=== PATIENT | female | born 1955 | race Caucasian/White ===

== ENCOUNTER → 2020-11-20 12:10 | Outpatient (BNVA) | payer MEDICARE, SELFPAY | PROVIDERS: Visit Provider Internal Medicine | DX: R76.8 Other specified abnormal immunological findings in serum (principal); M25.50 Pain in unspecified joint; R70.0 Elevated erythrocyte sedimentation rate; Z11.1 Encounter for screening for respiratory tuberculosis; Z11.59 Encounter for screening for other viral diseases; E03.9 Hypothyroidism, unspecified; Z51.81 Encounter for therapeutic drug level monitoring; D86.9 Sarcoidosis, unspecified; M32.9 Systemic lupus erythematosus, unspecified | CPT/HCPCS: 36415; 73120; 81003; 83516; 86480; 86704; 86803; 87340; 99204 ==

== ENCOUNTER 2020-11-20 13:37 | Outpatient (CLI) | payer MEDICARE, SELFPAY ==
--- NOTE | 2020-11-20 13:50 | XR_ITS ---
WS: [id number] Right hand, 2 views, 11/20/2020 Clinical Data: R76.8 - Other specified abnormal immunological findings in serum Comparison: None. Findings: No fractures or dislocations are seen. The soft tissues are unremarkable. The joint space s are normal No periarticular demineralization or calcifications are seen. XR/XR hand RT 2V [id number] Impression: Negative right hand.
--- NOTE | 2020-11-20 13:50 | XR_ITS ---
WS: [id number] Left hand, 2 views, 11/20/2020 Clinical Data: R76.8 - Other specified abnormal immunological findings in serum Comparison: None. Findings: No fractures or dislocations are seen. The soft tissues are unremarkable. The joint spaces are normal No periarticular demineralization or calcifications are seen. XR/XR hand LT 2V [id number] Impression: Negative left hand.
[2020-11-20 15:52] LABS: Hepatitis B Core AB, Total Non-Reactive (Nonreactive); Hepatitis B Surface Antigen Non-Reactive (Nonreactive); Hepatitis C Virus Antibody Non-Reactive (Nonreactive)
[2020-11-21 14:14] LABS: Cyclic Citrullinated Peptide >250 UNITS
[2020-11-22 15:14] LABS: Quantiferon Mitogen >10.00 IU/mL; Quantiferon Nil 0.01 IU/mL; Quantiferon Plus TB1 0.01 IU/mL; Quantiferon Plus TB2 0.01 IU/mL; Quantiferon TB Gold NEGATIVE (NEGATIVE)
[2020-11-25 21:23] LABS: ANCA Interp Negative (Negative)
== END 2020-11-20 13:38 | disposition home or self-care (01) ==
LOC: RAD 13:49
PROVIDERS: PCP Family Medicine; Visit Provider Internal Medicine
DX: R76.8 Other specified abnormal immunological findings in serum (principal); D86.9 Sarcoidosis, unspecified; Z51.81 Encounter for therapeutic drug level monitoring; M32.9 Systemic lupus erythematosus, unspecified
CPT/HCPCS: 36415; 73120; 81003; 83516; 86480; 86704; 86803; 87340

== ENCOUNTER → 2021-01-01 10:34 | Outpatient (BNVA) | payer MEDICARE, SELFPAY | PROVIDERS: PCP Family Medicine; Visit Provider Internal Medicine | DX: M05.9 Rheumatoid arthritis with rheumatoid factor, unspecified (principal); E03.9 Hypothyroidism, unspecified; R70.0 Elevated erythrocyte sedimentation rate; Z79.899 Other long term (current) drug therapy | CPT/HCPCS: 99214 ==

== ENCOUNTER → 2021-06-09 08:20 | Outpatient (BNVA) | payer MEDICARE, SELFPAY | PROVIDERS: PCP Family Medicine; Visit Provider Internal Medicine | DX: M05.9 Rheumatoid arthritis with rheumatoid factor, unspecified (principal); Z79.899 Other long term (current) drug therapy; Z79.52 Long term (current) use of systemic steroids; F17.200 Nicotine dependence, unspecified, uncomplicated | CPT/HCPCS: 99213; 99214 ==

== ENCOUNTER → 2022-01-05 09:01 | Outpatient (BNVA) | payer MEDICARE, SELFPAY | PROVIDERS: PCP Family Medicine; Visit Provider Internal Medicine | DX: M05.9 Rheumatoid arthritis with rheumatoid factor, unspecified (principal); Z79.899 Other long term (current) drug therapy; Z87.891 Personal history of nicotine dependence | CPT/HCPCS: 99214 ==

== ENCOUNTER → 2022-05-18 08:44 | Outpatient (BNVA) | payer MEDICARE, SELFPAY | PROVIDERS: PCP Family Medicine; Visit Provider Internal Medicine | DX: M05.9 Rheumatoid arthritis with rheumatoid factor, unspecified (principal); Z79.899 Other long term (current) drug therapy | CPT/HCPCS: 99214 ==

== ENCOUNTER → 2022-11-04 11:32 | Outpatient (BNVA) | payer MEDICARE, OTHER, SELFPAY | PROVIDERS: PCP Family Medicine; Visit Provider Internal Medicine | DX: M05.9 Rheumatoid arthritis with rheumatoid factor, unspecified (principal); Z79.899 Other long term (current) drug therapy | CPT/HCPCS: 99214 ==

== ENCOUNTER 2023-01-06 13:00 | Observation (INO) | payer MEDICARE, OTHER, SELFPAY ==
[2023-01-06] VITALS (45 sets, daily range): BP systolic 120–152; BP diastolic 70–104; PULSE 63–102; RESP 7–25; TEMP 36.7–36.8; O2SAT 89–97; BMI 29.7
--- NOTE | 2023-01-06 13:19 | W.ED.GENADLT ---
HPI - General Adult General: Chief complaint: General Medical Stated complaint: TINGLING IN BOTH HANDS Time Seen by Provider: 01/06/23 13:05 Source: patient Mode of arrival: EMS History of Present Illness: 67-year-old female who presents to the emergency room with complaints of numbness and tingling in her hands and feet bilaterally. She had a little bit of shortness of breath with it as well. It resolved by the time she arrived here she was at a doctor's appointment with a friend. No history of coronary disease. No chest pain or discomfort at this time. Onset (ago): minute(s) Location: left, right, upper extremity and lower extremity Relieving factors: none Exacerbating factors: none Associated symptoms: Deny chest pain, confusion, cough, diaphoresis, decreased appetite, dyspnea, fevers/chills, headache(s), malaise, nausea, rash, palpitations, seizures, short of breath, syncope, vomiting or weakness Review of Systems Const: Denies: fever(s), chills, fatigue, malaise or diaphoresis ENMT: Denies: throat pain, ear or mastoid pain, nasal discharge or nasal congestion Card: Denies: chest pain, palpitations or syncope Resp: Denies: dyspnea GI: Denies: abdominal pain, nausea or vomiting : Denies: flank pain, difficulty voiding, dysuria, urinary frequency or urinary urgency Skin/Breast: Denies: rash Neuro: Denies: headache(s) or confusion [facility] ED PFSH: Medical History (Updated 01/06/23 @ 17:15 by Roberth Gusman DO) Hypothyroidism Rheumatoid factor positive Social History Smoking and tobacco status: former smoker Alcohol intake: never Physical Exam Const: COMMON NORMALS: no acute distress GENERAL APPEARANCE: cooperative and comfortable ORIENTATION/CONSCIOUSNESS: Yes awake, Yes oriented to person, Yes oriented to place and Yes oriented to time HENMT: COMMON NORMALS: normocephalic, atraumatic and hearing grossly normal bilaterally HEAD & SCALP: normocephalic and atraumatic Resp: COMMON NORMALS: normal respiratory effort, No retractions, No use of accessory muscles and clear to auscultation bilaterally AUSCULTATION: clear to auscultation bilaterally Cardio: COMMON NORMALS: regular rate, regular rhythm and No murmurs present (Cardio) RATE: regular rate RHYTHM: regular rhythm GI: COMMON NORMALS: Soft to palpation and No hepatosplenomegaly present AUSCULTATION: Yes normoactive bowel sounds PALPATION: Yes Soft to palpation, No Tenderness to palpation present (GI), No Guarding due to palpation present (GI) and Yes No hepatosplenomegaly present Extremity: COMMON NORMALS: normal to inspection, capillary refill normal, no clubbing, cyanosis or edema, no calf tenderness and no pedal edema Neuro: SENSORIUM/ORIENTATION: Yes oriented to person, Yes oriented to place and Yes oriented to time Skin: COMMON NORMALS: no rashes or lesions noted GENERAL SKIN EXAM: no rashes or lesions noted Course Vital Signs: Vital signs: Vital Signs Temperature 98.0 F 01/06/23 13:10 Pulse Rate 81 01/06/23 16:30 Respiratory Rate 24 H 01/06/23 16:30 Blood Pressure 132/82 01/06/23 16:00 Pulse Oximetry 94 01/06/23 16:30 Oxygen Delivery Nj thod 01/06/23 13:10 MDM - General Adult Medical Decision Making Initially patient arrived history was not terribly convincing for coronary artery disease and she had an allergy listed to aspirin. EMS had not given her aspirin and we held off and waited under troponins. Troponin delta is positive. Discussed patient's aspirin allergy with her. 50 years ago she remembers having hives after she took aspirin but never had any breathing problems. We will go ahead and give her 324 of aspirin and 25 of Benadryl along with it. Initial EKG at the doctor's office and with EMS showed some mild lateral ST depression this resolved at the time she arrived here she is still a little tingling in her fingers but has no chest pain. She is placed on topical nitro as well as given aspirin after discussion with her and see about note above. We also gave her single injection of Lovenox. Discussed the results with her and we will place her in observation to run out the rest of the troponins and for further evaluation regarding her risk for acute coronary syndrome. Medical Records I reviewed the patient's medical records. Lab Data I reviewed the patient's lab results. 01/06/23 13:34 01/06/23 13:34 Laboratory Results WBC 9.0 10^3/uL (4.0-10.0) 01/06/23 13:34 RBC 5.41 10^6/uL (4.1-5.3) H 01/06/23 13:34 Hgb 16.0 g/dL (11.5-15.3) H 01/06/23 13:34 Hct 49.9 % (37.0-47.0) H 01/06/23 13:34 MCV 92.2 fl (81-99) 01/06/23 13:34 MCH 29.6 pg (28.0-34.0) 01/06/23 13:34 MCHC 32.1 g/dL (30.0-36.0) 01/06/23 13:34 RDW 14.0 % (12.1-15.1) 01/06/23 13:34 Plt Count 226 10^3/cmm (130-400) 01/06/23 13:34 MPV 9.3 fL (7.4-10.4) 01/06/23 13:34 Neut % (Auto) 77.5 % 01/06/23 13:34 Lymph % (Auto) 11.8 % 01/06/23 13:34 [place] % (Auto) 9.2 % 01/06/23 13:34 Eos % (Auto) 0.9 % 01/06/23 13:34 Baso % (Auto) 0.4 % 01/06/23 13:34 Neut # (Auto) 6.94 10^3/uL (1.8-7.7) 01/06/23 13:34 Lymph # (Auto) 1.1 10^3/uL (0.8-4.8) 01/06/23 13:34 [place] # (Auto) 0.8 10^3/uL (0.2-0.9) 01/06/23 13:34 Eos # (Auto) 0.1 10^3/uL (0.0-0.8) 01/06/23 13:34 Baso # (Auto) 0.0 10^3/uL (0.0-0.1) 01/06/23 13:34 Nucleated RBC % (auto) 0 % 01/06/23 13:34 Nucleated RBCs # 0.0 /100WBC 01/06/23 13:34 Specimen Type Arterial 01/06/23 13:19 Sample Site Brachial, left 01/06/23 13:19 ABG pH 7.41 (7.35-7.45) 01/06/23 13:19 ABG pCO2 39.6 mmHg (35-45) 01/06/23 13:19 ABG pO2 69.2 mmHg (80.0-100.0) L 01/06/23 13:19 ABG HCO3 25.0 mmol/L (22-26) 01/06/23 13:19 ABG O2 Saturation 95.7 01/06/23 13:19 ABG Base Excess 0.3 mmol/L (-2.0-2.0) 01/06/23 13:19 Andrea Test Pos 01/06/23 13:19 A-a O2 Gradient 4.2 mmHg (5-10) L 01/06/23 13:19 Hematocrit 48.8 % (37-47) H 01/06/23 13:19 Hgb O2 Saturation 90.2 % (95-100) L 01/06/23 13:19 Carboxyhemoglobin 5.2 %THgb (0.4-20.1) 01/06/23 13:19 Methemoglobin 0.5 % (0.4-1.5) 01/06/23 13:19 Total Hemoglobin 15.9 g/dL (12-16) 01/06/23 13:19 Sodium 146.0 mmol/L (131-143) H 01/06/23 13:19 Potassium 3.5 mmol/L (3.5-5.0) 01/06/23 13:19 Glucose 119.0 mg/dL (70-115) H 01/06/23 13:19 Ionized Calcium 1.2 mmol/L (1.1-1.4) 01/06/23 13:19 O2 Delivery Device Room air 01/06/23 13:19 FiO2 21.0 % 01/06/23 13:19 Spinning Operator ID Cak 01/06/23 13:19 Sodium 142 mmol/L (136-145) 01/06/23 13:34 Potassium 3.8 mmol/L (3.5-5.1) 01/06/23 13:34 Chloride 101 mmol/L (98-107) 01/06/23 13:34 Carbon Dioxide 27 mmol/L (22-29) 01/06/23 13:34 Anion Gap 17.8 (5-19) 01/06/23 13:34 BUN 10 mg/dL (8-23) 01/06/23 13:34 Creatinine 0.8 mg/dL (0.5-0.9) 01/06/23 13:34 GFR Calculation 71.3 mL/min (90-130) L 01/06/23 13:34 Glucose 115 mg/dL (65-115) 01/06/23 13:34 Calculated Osmolality 294 mOsm/kg (285-295) 01/06/23 13:34 Calcium 9.4 mg/dL (8.5-10.5) 01/06/23 13:34 Total Bilirubin 0.4 mg/dL (0.15-1.2) 01/06/23 13:34 AST 20 U/L (0-32) 01/06/23 13:34 ALT 23 U/L (0-33) 01/06/23 13:34 Alkaline Phosphatase 76 U/L (35-105) 01/06/23 13:34 Troponin T Baseline 66 ng/L (0-10) H 01/06/23 13:34 Troponin T 120 Minute 89.09 ng/L (0-10) H 01/06/23 15:30 Delta Troponin T 23.09 ABS# (0-10) H* 01/06/23 15:30 Total Protein 6.9 g/dL (6.6-8.7) 01/06/23 13:34 Albumin 4.1 g/dL (3.5-5.2) 01/06/23 13:34 Globulin 2.8 g/dL (1.3-4.6) 01/06/23 13:34 Discharge Plan Discharge Patient Disposition: Admitted As Inpatient Clinical Impression: Non-ST elevation PA (NSTEMI) Condition: Stable Prescriptions: No Action Vitamin B-12 250 mcg Tablet 250 mcg PO DAILY levothyroxine 100 mcg tablet 100 mcg PO QAM Vitamin D3 125 mcg (5,000 unit) Tablet 125 mcg PO DAILY prednisone 5 mg tablet 5 mg PO QAM leflunomide 10 mg tablet 10 mg PO QAM folic acid 1 mg tablet 1 mg PO QAM diclofenac sodium 1 % gel 2 g topical QID PRN (Reason: Pain) Rx Instructions: apply to single elbow, wrist or hand; for hand includes palm/fingers/back of hand Xeljanz XR 11 mg tablet extended release 24 hr 11 mg PO QAM Referrals: Steven Eldridge MD [Primary Care Provider] - Coding Level of Care Code ED Nursery School Attendant for Nika Hamilton
[2023-01-06 13:31] LABS: ABG PCO2 39.6 mmHg (35-45); ABG PH Result 7.41 (7.35-7.45); Alveolar-Arterial Oxygen Gradi 4.2 mmHg (5-10); Arterial Blood Gas Hematocrit 48.8 % (37-47); Base Excess ABG 0.3 mmol/L (-2.0-2.0); Blood Gas Allen Test Pos; Blood Gas Operator Identificat CAK; Blood Gas Sample Site Brachial, left; Blood Gas Sample Type Arterial; Carboxyhemoglobin 5.2 %THgb (0.4-20.1); HGB O2 Sat 90.2 % (95-100); Ionized Calcium Level - ABG 1.2 mmol/L (1.1-1.4); Methemoglobin 0.5 % (0.4-1.5); Oxygen Device ROOM AIR; Oxygen Saturation ABG 95.7; PO2 ABG 69.2 mmHg (80.0-100.0); Potassium Level - ABG 3.5 mmol/L (3.5-5.0); Total Hemoglobin 15.9 g/dL (12-16)
--- NOTE | 2023-01-06 13:39 | ECG_ITS ---
[facility] Test Date: 2023-01-06 Pat Name: Kari Lugo Department: Room: Gender: Female Caregiver Services Home: : 1955 Requested By: Roberth Bains Order Number: [id number] Dorita MD: Sander Allen M.D. Measurements Intervals [place] Rate: 78 P: 55 NE: 146 QRS: 53 QRSD: 83 T: 55 QT: 370 QTc: 423 Interpretive Statements SINUS RHYTHM LOW QRS VOLTAGE IN PRECORDIAL LEADS [QRS DEFLECTION < 1.0 mV IN CHEST LEADS] No previous ECG available for comparison Electronically Signed On 01-06-2023 15:08:26 GAS DISPENSER by Sander Allen M.D. [id number]
[2023-01-06 13:55] LABS: Basophils % 0.4 %; Eosinophils # 0.1 10^3/uL (0.0-0.8); Eosinophils % 0.9 %; Hematocrit 49.9 % (37.0-47.0); Lymphocytes # 1.1 10^3/uL (0.8-4.8); Lymphocytes % 11.8 %; Mean Corpuscular HGB Conc 32.1 g/dL (30.0-36.0); Mean Corpuscular Hemoglobin 29.6 pg (28.0-34.0); Mean Corpuscular Volume 92.2 fl (81-99); Mean Platelet Volume 9.3 fL (7.4-10.4); Monocytes # 0.8 10^3/uL (0.2-0.9); Monocytes % 9.2 %; Neutrophils # 6.94 10^3/uL (1.8-7.7); Neutrophils % 77.5 %; Nucleated Red Blood Cells % 0 %; Platelet Count 226 10^3/cmm (130-400); Red Blood Count 5.41 10^6/uL (4.1-5.3)
[2023-01-06 14:08] LABS: Alanine Aminotransferase 23 U/L (0-33); Albumin Level 4.1 g/dL (3.5-5.2); Alkaline Phosphatase 76 U/L (35-105); Anion Gap 17.8 (5-19); Aspartate Amino Transferase 20 U/L (0-32); Blood Urea Nitrogen 10 mg/dL (8-23); Calcium 9.4 mg/dL (8.5-10.5); Carbon Dioxide 27 mmol/L (22-29); Chloride 101 mmol/L (98-107); Creatinine Clr Calc Pharmacy 80.9506; Globulin 2.8 g/dL (1.3-4.6); Glomerular Filtration Rate 71.3 mL/min (90-130); Glucose 115 mg/dL (65-115); Osmolality Calculated 294 mOsm/kg (285-295); Potassium 3.8 mmol/L (3.5-5.1); Sodium 142 mmol/L (136-145); Total Bilirubin 0.4 mg/dL (0.15-1.2); Total Protein 6.9 g/dL (6.6-8.7)
[2023-01-06 14:10] LABS: Troponin(5th) Baseline 66 ng/L (0-10)
--- NOTE | 2023-01-06 15:12 | ECG_ITS ---
[facility] Test Date: 2023-01-06 Pat Name: Kari Lugo Department: Room: Gender: Female Automobile Body Repair Supervisor: : 1955 Requested By: Roberth Bains Order Number: [id number] Dorita MD: Zoe Cortes M.D. Measurements Intervals [place] Rate: 70 P: 61 NC: 147 QRS: 62 QRSD: 78 T: 60 QT: 380 QTc: 413 Interpretive Statements SINUS RHYTHM LOW QRS VOLTAGE IN PRECORDIAL LEADS [QRS DEFLECTION < 1.0 mV IN CHEST LEADS] Compared to ECG 01/06/2023 13:39:21 No significant changes Electronically Signed On 01-07-2023 23:44:28 FIELD OPERATIONS FARM MANAGER by Zoe Cortes M.D. [email or web address] [email or web address].[employer]/store/[id number]
[2023-01-06 16:08] LABS: Troponin 5 2HR 89.09 ng/L (0-10)
[2023-01-06 16:15] LABS: Troponin 5 2HR Delta 23.09 ABS# (0-10)
[2023-01-06] MEDS: enoxaparin 100 mg/mL Syringe 90 MG SUBCUT (16:36)
[2023-01-06] MEDS: nitroglycerin 1 gm/inch oint Pkt 1 INCH TOPICAL (16:36)
--- NOTE | 2023-01-06 16:54 | PM.HP ---
Providers/Chief Complaint Primary Care Provider: Steven Eldridge MD Chief Complaint: TINGLING IN BOTH HANDS History of Present Illness Kari Lugo is a 67 year old female who is an active smoker, history of rheumatoid, has been on steroids for at least a year presented with chief complaint numbness in her arms. She was at her PCP clinic when she complained of numbness EKG was concerning for ST depression to the physician that is why she was prompted to the ER. On arrival her EKG was unremarkable, troponin are showing an uptrend, she is chest pain-free he has not noticed any nausea, vomiting, diarrhea, chest pain or shortness of breath. She is describing numbness in her arms bilaterally. She has been given therapeutic dose of Lovenox in the ER along aspirin She does not carry history of UT, CHF or coronary disease She does not have any history of high blood pressure and she does not take anything for hypertension she has history of hypothyroidism and rheumatoid Review of Systems Const: Denies: fever(s) Eyes: Denies: change in vision ENMT: Denies: throat pain Card: Denies: chest pain Resp: Denies: dyspnea GI: Denies: abdominal pain : Denies: flank pain Musc: Reports: extremity pain Skin/Breast: Denies: rash Neuro: Reports: sensory changes Psych: Denies: anxiety Endo: Denies: polyuria Jose/Lymph: Denies: easy bruising All/Imm: Denies: urticaria Medications/Allergies Home Medications Medication Instructions Recorded Confirmed Last Taken Type cholecalciferol (vitamin D3) 125 125 mcg PO DAILY 01/06/23 01/06/23 1 Week Ago History mcg (5,000 unit) tablet (Vitamin ~12/30/22 D3) cyanocobalamin (vitamin B-12) 250 250 mcg PO DAILY 01/06/23 01/06/23 01/06/23 History mcg tablet (Vitamin B-12) diclofenac sodium 1 % topical gel 2 g topical QID PRN Pain 01/06/23 01/06/23 Unknown History folic acid 1 mg tablet 1 mg PO QAM 01/06/23 01/06/23 01/05/23 History leflunomide 10 mg tablet 10 mg PO QAM 01/06/23 01/06/23 01/05/23 History levothyroxine 100 mcg tablet 100 mcg PO QAM 01/06/23 01/06/23 01/05/23 History prednisone 5 mg tablet 5 mg PO QAM 01/06/23 01/06/23 01/05/23 History tofacitinib 11 mg tablet,extended 11 mg PO QAM 01/06/23 01/06/23 Unknown History release 24 hr (Xeljanz XR) Allergies Allergy/AdvReac Type Severity Reaction Status Date / Time aspirin Allergy rash Verified 01/06/23 14:01 Penicillins Allergy rash Verified 01/06/23 14:01 PFSH Acute PFSH: Medical History (Updated 01/06/23 @ 17:36 by Hugo Gooden MD) Hypothyroidism Rheumatoid factor positive Surgical History (Updated 01/06/23 @ 17:36 by Hugo Gooden MD) Hx of cholecystectomy Social History Smoking and tobacco status: former smoker Alcohol intake: never Vitals/I&O/Wt Last Vital Signs Temp 98.0 F 01/06/23 13:10 Pulse 81 01/06/23 16:30 Resp 24 H 01/06/23 16:30 BP 132/82 01/06/23 16:00 Pulse Ox 94 01/06/23 16:30 O2 Del Method 01/06/23 13:10 Weight last 48 hrs Weight 91.172 kg Physical Exam Narrative: Chest pain-free Hemodynamically stable Hypertension in the ER Awake and alert S1, S2 Abdomen soft Euvolemic Cushingoid appearance Pleasant and cooperative Appears stated age Comfortable Data 01/06/23 13:34 01/06/23 13:34 A&P Assessment and plan (1) Hypothyroidism: (2) Numbness and tingling of upper extremity: (3) Rheumatoid factor positive: (4) ESR raised: (5) Arthralgia: Plan Moderate risk factors for coronary disease Presented with numbness of upper extremities bilaterally History of rheumatoid arthritis Troponin trending up EKG without ischemic or infarctive changes I will request Lexiscan stress test in the morning N.p.o. after midnight Check echo Add lisinopril for hypertension Uptitrate antihypertensive regimen Full code Cardiac diet for tonight and 2 midnight She is seeing a gasoline power shovel operator for rheumatoid arthritis she has been taking steroids for last 1 year she does have cushingoid appearance We will add gabapentin for neuropathic pain Attestations Medical Necessity Statement*: Anticipate discharge within 48 hours Diagnoses Hypothyroidism E03.9 Numbness and tingling of upper extremity R20.0; R20.2 Rheumatoid factor positive R76.8 ESR raised R70.0 Arthralgia M25.50
[2023-01-06] MEDS: aspirin 81 mg Chew Tablet 324 MG PO (16:57)
[2023-01-06] MEDS: diphenhydrAMINE 50 mg/mL SDV 1mL 25 MG IVP (17:02)
--- NOTE | 2023-01-06 17:30 | USCV_ITS ---
Kari Lugo Age: 67 Gender: F : 1955 Exam Date: 01/06/2023 18:32 Ordering Phys: Hugo Gooden MD Technologist: DANNY [place]am [place] [facility] [place] [facility] [place] Indication: bilateral arm / hand numbness episode today. No history of cardiac intervention per patient. BP: 132 / 82 HR: 75 Rhythm: Sinus Technical Quality: Adequate MEASUREMENTS (Male / Female) Normal Values 2D ECHO LV Diastolic Diameter PLAX 4.2 cm 4.2 - 5.9 / 3.9 - 5.3 cm LV Systolic Diameter PLAX 2.9 cm IVS Diastolic Thickness 1.2 cm 0.6 - 1.0 / 0.6 - 0.9 cm IVS Systolic Thickness 1.5 cm LVPW Diastolic Thickness 1.6 cm 0.6 - 1.0 / 0.6 - 0.9 cm LVPW Systolic Thickness 1.8 cm LVOT Diameter 2.0 cm LV Ejection Fraction 2D Teich 59.0 % LV Ejection Fraction MOD 2C 58.4 % LV Ejection Fraction 2C AL 59.3 % LA Diameter 3.6 cm LA Width 2.7 cm LA Height 4.2 cm RA Width 3.2 cm RA Height 2.8 cm Aorta at Sinotubular Diameter 3.0 cm IVC Diameter 1.6 cm M-MODE Aortic Annulus Diameter 3.3 cm LA Ao Ratio MM 1.1 MV E Point Septal Separation 0.6 cm DOPPLER AV Peak Velocity 127.0 cm/s LVOT Peak Velocity 107.0 cm/s AV Area Cont Eq vti 3.0 cm squared AV Area Cont Eq pk 2.6 cm squared MV Peak Velocity 146.0 cm/s MV Area PHT 3.4 cm squared Mitral E to A Ratio 0.5 MV E' Velocity 32.5 cm/s Mitral E to MV E' Ratio 7.3 Mitral E to LV E' Lateral Ratio 9.6 Mitral E to LV E' Septal Ratio 5.8 TV Peak E Velocity 47.0 cm/s PV Peak Velocity 100.0 cm/s RV Acceleration Time 0.1 s RV Ejection Time 0.3 s RV AcT/ET 0.4 FINDINGS Left Ventricle Normal left ventricular size and systolic function, EF 59 %. No regional wall motion abnormalities. Grade I/IV diastolic dysfunction (abnormal relaxation filling pattern), normal to mildly elevated filling pressures. Mild left ventricular hypertrophy. Right Ventricle Mildly increased right ventricular size. Normal right ventricular systolic function. Right Atrium Mildly increased right atrial size. Left Atrium The left atrium is normal in size. Mitral Valve No gross abnormalities noted Aortic Valve Thickened aortic valve. Tricuspid Valve Trace tricuspid valve regurgitation. Pulmonic Valve No gross abnormalities noted Pericardium Normal pericardium without effusion. Aorta Normal ascending aorta dimension. IVC Normal inferior vena cava. CONCLUSIONS Normal left ventricular size and systolic function, EF 59 %. No regional wall motion abnormalities. Grade I/IV diastolic dysfunction (abnormal relaxation filling pattern), normal to mildly elevated filling pressures. Mild left ventricular hypertrophy. Mildly increased right ventricular size. Normal right ventricular systolic function. Mildly increased right atrial size. Trace tricuspid valve regurgitation. PA pressure was not calculated because of the poor Doppler signals There is no pericardial effusion. There are no intracardiac masses. No similar previous studies are available for comparison Dr Zoe Cortes MD [facility] (Electronically Signed) Final Date: 06 January 2023 23:00 S
--- NOTE | 2023-01-06 17:32 | ECG_ITS ---
[facility] Test Date: 2023-01-07 Pat Name: Kari Lugo Department: Room: 106 Gender: Female Teletype Adjuster: Shawna Carrero : 1955 Requested By: Hugo Gooden Order Number: [id number] Reading MD: Zoe Cortes M.D. Interpretive Statements NAME OF STUDY: LEXISCAN SESTAMIBI STRESS TEST INDICATION: Pain PROCEDURE: At the baseline, the EKG revealed normal sinus rhythm with a normal ST Ts. The baseline heart was 75 bpm with a blood pressue of 131/83 mm of Hg Lexiscan was infused over a period of 20 seconds. A total of 0.4 milligrams of Lexiscan was infused. The stress phase was continued for a total of 5 minutes. Heart rate at the end of the stress phase was 85 bpm with a blood pressure 131/64 mm of Hg. The EKG at the peak infusion revealed no significant changes Sestamibi was injected 20 seconds after the Lexiscan infusion. Heart rate at the end of the recovery phase was 85 bpm with a blood pressure of 136/64 mm of Hg. CONCLUSION: 1. No significant EKG changes with the LexiScan infusion 2. No LexiScan induced chest pain or cardiac arrhythmia 3. Normal blood pressure and heart rate response 4. Sestamibi/sestamibi perfusion scan pending; see separate report. Electronically Signed On 01-10-2023 23:58:08 CDT by Zoe Cortes M.D. [email or web address].[email or web address]/store/[id number]
[2023-01-06 18:16] LABS: D Dimer 3.83 ug/mIFEU (0-0.59)
[2023-01-06 18:30] LABS: Thyroid Stimulating Hormone 1.87 uIU/mL (0.27-4.20)
[2023-01-06 19:07] LABS: Vitamin B12 > 2000 pg/mL (232-1245)
--- NOTE | 2023-01-06 19:22 | ECG_ITS ---
[facility] Test Date: 2023-01-06 Pat Name: Kari Lugo Department: Room: EDIP Gender: Female Operator Bearer Systems: : 1955 Requested By: Roberth Bains Order Number: [id number] Dorita MD: Zoe Cortes M.D. Measurements Intervals [place] Rate: 72 P: 55 [place]: 144 QRS: 50 QRSD: 73 T: 54 QT: 371 QTc: 406 Interpretive Statements SINUS RHYTHM Compared to ECG 01/06/2023 16:20:06 No significant changes Electronically Signed On 01-07-2023 23:46:06 TRUCK DRIVING INSTRUCTOR by Zoe Cortes M.D. [email or web address] Organizationlos angeles metropolitan med centerInf[facility]/store/[id number]
[2023-01-06] MEDS: gabapentin 100 mg Capsule PO (21:10)
[2023-01-06 21:31] LABS: Troponin 5 6HR 79.88 ng/L (0-10)
[2023-01-06 21:33] LABS: Troponin 5 6HR Delta 13.88 ng/L (0-12)
[2023-01-07] VITALS (19 sets, daily range): BP systolic 106–136; BP diastolic 63–88; PULSE 63–85; RESP 16–17; TEMP 36.6; O2SAT 89–94
[2023-01-07] MEDS: folic acid 1 mg Tablet PO (05:11)
[2023-01-07] MEDS: levothyroxine 100 mcg Tablet PO (05:11)
--- NOTE | 2023-01-07 05:22 | PC.NURSE ---
Pt states n/v when taking prednisone wo food. Pt npo pending lexiscan. Documenting not given. Will update oncoming shift that she will need it when no longer npo.
[2023-01-07 05:26] LABS: Basophils % 0.9 %; Eosinophils # 0.1 10^3/uL (0.0-0.8); Eosinophils % 2.5 %; Hematocrit 45.4 % (37.0-47.0); Hemoglobin 14.4 g/dL (11.5-15.3); Lymphocytes # 1.1 10^3/uL (0.8-4.8); Lymphocytes % 24.5 %; Mean Corpuscular HGB Conc 31.7 g/dL (30.0-36.0); Mean Corpuscular Hemoglobin 29.6 pg (28.0-34.0); Mean Corpuscular Volume 93.2 fl (81-99); Mean Platelet Volume 8.8 fL (7.4-10.4); Monocytes # 0.6 10^3/uL (0.2-0.9); Monocytes % 12.8 %; Neutrophils # 2.58 10^3/uL (1.8-7.7); Neutrophils % 59.1 %; Nucleated Red Blood Cells % 0 %; Platelet Count 206 10^3/cmm (130-400); Red Blood Count 4.87 10^6/uL (4.1-5.3); Red Cell Distribution Width 14.1 % (12.1-15.1); White Blood Count 4.4 10^3/uL (4.0-10.0)
[2023-01-07 05:43] LABS: Anion Gap 12.2 (5-19); Blood Urea Nitrogen 11 mg/dL (8-23); Calcium 9.3 mg/dL (8.5-10.5); Carbon Dioxide 30 mmol/L (22-29); Chloride 106 mmol/L (98-107); Glomerular Filtration Rate 62.3 mL/min (90-130); Glucose 93 mg/dL (65-115); Osmolality Calculated 297 mOsm/kg (285-295); Potassium 4.2 mmol/L (3.5-5.1); Sodium 144 mmol/L (136-145)
--- NOTE | 2023-01-07 08:00 | NMCV_ITS ---
NM maverick perf SPECT r/s* [id number] Kari Lugo Age: 67 Gender: F : 1955 Exam Date: 01/07/2023 08:00 Ordering Phys: Hugo Gooden MD Technologist: ZARA Griffith Exam Location: [facility] Indications: CHEST PAIN STRESS TEST Please [facility] for [facility] IMAGE PROTOCOL Rest/Stress 1 Lexiscan Day Radiopharmaceutical Dose (mCi) Administration Site Administered by Rest: Tc-99m 10.6 IV ZARA Griffith Sestamibi Stress:Tc-99m 32.2 IV ZARA Méndez Sestamibi Rest: 07-Jan-2023 60 Discovery 630 Stress: 07-Jan-2023 30 Discovery 630 0.4mg Lexiscan. Supine position only as patient was unable to lay prone. SPECT RESULTS Technical Quality: Excellent Raw Data Analysis: Normal Image Corrections: No attenuation or motion correction applied Summed Stress Score: 2 Summed Rest Score: 1 Summed Difference Score: 1 PERFUSION FINDINGS A small area of slightly decreased tracer uptake was noted in the mid inferolateral and apical lateral regions. Subtle area of reversibility was noted in this region FUNCTIONAL RESULTS (calculated via Gated SPECT) Stress Image LV EF (%): 82 Stress EDV (mL):62 TID: 0.72 Stress ESV (mL):11 FUNCTIONAL FINDINGS: Segmental wall motion analysis revealing no gross wall motion abnormalities IMPRESSIONS 1. Myocardial perfusion imaging revealing small area of slightly decreased persistent tracer uptake in the mid inferolateral and apical lateral regions with a subtle area of reversibility, suggesting myocardial scarring in the distribution of the distal circumflex artery with a very small area of leo- infarction ischemia. 2. Normal LV ejection fraction of 82% 3. LV wall motion analysis revealing no gross wall motion normalities. 4. Normal LV volume No similar previous studies are available for comparison Dr Zoe Cortes MD [facility] (Electronically Signed) Final Date: 07 January 2023 12:45 S
--- NOTE | 2023-01-07 09:00 | CT_ITS ---
WS: [id number] CTA OF THE CHEST WITH PULMONARY EMBOLISM PROTOCOL TECHNIQUE: High-resolution contrast enhanced CTA of the chest with coronal and sagittal reformatted i mages with pulmonary embolism protocol. MIP images are also reviewed. CLINICAL INFORMATION: atypical chest pain, high dimer COMPARISON: None. DLP: 436.[address] scans at [facility] use at least one of these dose optimization techniques: automated e xposure control; mA and/or kV adjustment per patient size (includes targeted exams where dose is matc hed to clinical indication); or iterative reconstruction. FINDINGS: The lungs are well aerated. No acute pulmonary infiltrates. No focal pneumonia or pleural fluid. Subs egmental atelectasis LEFT lower lobe. Slight atelectasis RIGHT lower lobe. No mediastinal or hilar ly mphadenopathy. Normal caliber thoracic aorta. Aortic calcification. Adrenal glands are normal. Cholec ystectomy clips. Small esophageal hiatal hernia. No axillary lymphadenopathy. Proximal main pulmonary arteries are normal. Normal segmental and subsegmental pulmonary arteries. No evidence of pulmonary embolus. Hypertrophic changes thoracic spine. CT/CT angio chest PE protcl [id number] IMPRESSION: 1. No evidence of pulmonary embolus. 2. Lungs are well aerated. Slight bibasilar atelectasis. 3. Prior cholecystectomy. 4. Small esophageal hiatal hernia.
[2023-01-07] MEDS: lisinopril 10 mg Tablet PO (10:13)
[2023-01-07] MEDS: gabapentin 100 mg Capsule PO (10:13)
[2023-01-07] MEDS: regadenoson 0.4 Mg/5 ml Syringe IVP (10:55)
--- NOTE | 2023-01-07 11:45 | P.DS_ITS ---
Discharge Providers Date of Admission: 01/06/23 16:48 Date of Discharge: January 07, 2023 Attending Provider at Admission: Hugo Gooden MD Attending Provider at Discharge: Hugo Gooden MD Primary Care Provider: Steven Eldridge MD Diagnoses at Discharge Discharge Diagnosis (1) Hypothyroidism: Status: Acute (2) Numbness and tingling of upper extremity: Status: Acute (3) Rheumatoid factor positive: Status: Acute (4) ESR raised: Status: Acute (5) Arthralgia: Status: Acute Reason for Visit Reason for Visit: TINGLING IN BOTH HANDS Hospital Course Hospital Course 67-year female who was sent from her PCP for concerning symptoms of numbness in both arms and EKG changes. However on arrival she was chest pain-free, was complaining of numbness in her arms bilaterally, she does have rheumatoid arthritis with neck pains which are chronic in nature, she is on steroids, does not have any history of TX, CHF or cardiac disease. EKG was unremarkable she remained chest pain-free, troponin 6 hours trending down, decision was made to do a cardiac stress test. Patient remained hemodynamically stable, chest pain- free. High D-dimer noted CTA chest was requested before discharge. Physical Exam Narrative: Awake and alert Chest pain-free Hemodynamically stable Cushingoid appearance Abdomen soft GCS 15 On room air Discharge Data Studies Completed and Pending Completed Studies During Hospitalization Category Date Time Status Sestamibi Stress Test Request Routine Exams 01/06/23 17:32 Draft CV. echo complete* [id number] Stat Ultrasound 01/06/23 17:30 Completed Pending at discharge Category Date Time Status CTA PE [CT angio chest PE protcl [id number]] Routine Cat Scan 01/07/23 09:00 Ordered NM maverick perf SPECT r/s* [id number] Routine Nuc Med 01/07/23 08:00 Taken Laboratory Results WBC 4.4 10^3/uL (4.0-10.0) 01/07/23 05:20 RBC 4.87 10^6/uL (4.1-5.3) 01/07/23 05:20 Hgb 14.4 g/dL (11.5-15.3) 01/07/23 05:20 Hct 45.4 % (37.0-47.0) 01/07/23 05:20 MCV 93.2 fl (81-99) 01/07/23 05:20 MCH 29.6 pg (28.0-34.0) 01/07/23 05:20 MCHC 31.7 g/dL (30.0-36.0) 01/07/23 05:20 RDW 14.1 % (12.1-15.1) 01/07/23 05:20 Plt Count 206 10^3/cmm (130-400) 01/07/23 05:20 MPV 8.8 fL (7.4-10.4) 01/07/23 05:20 Neut % (Auto) 59.1 % 01/07/23 05:20 Lymph % (Auto) 24.5 % 01/07/23 05:20 [place] % (Auto) 12.8 % 01/07/23 05:20 Eos % (Auto) 2.5 % 01/07/23 05:20 Baso % (Auto) 0.9 % 01/07/23 05:20 Neut # (Auto) 2.58 10^3/uL (1.8-7.7) 01/07/23 05:20 Lymph # (Auto) 1.1 10^3/uL (0.8-4.8) 01/07/23 05:20 [place] # (Auto) 0.6 10^3/uL (0.2-0.9) 01/07/23 05:20 Eos # (Auto) 0.1 10^3/uL (0.0-0.8) 01/07/23 05:20 Baso # (Auto) 0.0 10^3/uL (0.0-0.1) 01/07/23 05:20 Nucleated RBC % (auto) 0 % 01/07/23 05:20 Nucleated RBCs # 0.0 /100WBC 01/07/23 05:20 D-Dimer 3.83 ug/mIFEU (0-0.59) H 01/06/23 13:34 Specimen Type Arterial 01/06/23 13:19 Sample Site Brachial, left 01/06/23 13:19 ABG pH 7.41 (7.35-7.45) 01/06/23 13:19 ABG pCO2 39.6 mmHg (35-45) 01/06/23 13:19 ABG pO2 69.2 mmHg (80.0-100.0) L 01/06/23 13:19 ABG HCO3 25.0 mmol/L (22-26) 01/06/23 13:19 ABG O2 Saturation 95.7 01/06/23 13:19 ABG Base Excess 0.3 mmol/L (-2.0-2.0) 01/06/23 13:19 Andrea Test Pos 01/06/23 13:19 A-a O2 Gradient 4.2 mmHg (5-10) L 01/06/23 13:19 Hematocrit 48.8 % (37-47) H 01/06/23 13:19 Hgb O2 Saturation 90.2 % (95-100) L 01/06/23 13:19 Carboxyhemoglobin 5.2 %THgb (0.4-20.1) 01/06/23 13:19 Methemoglobin 0.5 % (0.4-1.5) 01/06/23 13:19 Total Hemoglobin 15.9 g/dL (12-16) 01/06/23 13:19 Sodium 146.0 mmol/L (131-143) H 01/06/23 13:19 Potassium 3.5 mmol/L (3.5-5.0) 01/06/23 13:19 Glucose 119.0 mg/dL (70-115) H 01/06/23 13:19 Ionized Calcium 1.2 mmol/L (1.1-1.4) 01/06/23 13:19 O2 Delivery Device Room air 01/06/23 13:19 FiO2 21.0 % 01/06/23 13:19 Windows Server Architect ID Cak 01/06/23 13:19 Sodium 144 mmol/L (136-145) 01/07/23 05:20 Potassium 4.2 mmol/L (3.5-5.1) 01/07/23 05:20 Chloride 106 mmol/L (98-107) 01/07/23 05:20 Carbon Dioxide 30 mmol/L (22-29) H 01/07/23 05:20 Anion Gap 12.2 (5-19) 01/07/23 05:20 BUN 11 mg/dL (8-23) 01/07/23 05:20 Creatinine 0.9 mg/dL (0.5-0.9) 01/07/23 05:20 GFR Calculation 62.3 mL/min (90-130) L 01/07/23 05:20 Glucose 93 mg/dL (65-115) 01/07/23 05:20 Calculated Osmolality 297 mOsm/kg (285-295) H 01/07/23 05:20 Calcium 9.3 mg/dL (8.5-10.5) 01/07/23 05:20 Magnesium 2.0 mg/dL (1.7-2.3) 01/07/23 05:20 Total Bilirubin 0.4 mg/dL (0.15-1.2) 01/06/23 13:34 AST 20 U/L (0-32) 01/06/23 13:34 ALT 23 U/L (0-33) 01/06/23 13:34 Alkaline Phosphatase 76 U/L (35-105) 01/06/23 13:34 Troponin T Baseline 66 ng/L (0-10) H 01/06/23 13:34 Troponin T 120 Minute 89.09 ng/L (0-10) H 01/06/23 15:30 Delta Troponin T 23.09 ABS# (0-10) H* 01/06/23 15:30 Troponin T Hi Sens 6Hr 79.88 ng/L (0-10) H 01/06/23 20:25 Troponin T Hi Sens 6Hr Delta 13.88 ng/L (0-12) H* 01/06/23 20:25 Total Protein 6.9 g/dL (6.6-8.7) 01/06/23 13:34 Albumin 4.1 g/dL (3.5-5.2) 01/06/23 13:34 Globulin 2.8 g/dL (1.3-4.6) 01/06/23 13:34 Vitamin B12 > 2000 pg/mL (232-1245) H 01/06/23 13:12 TSH 1.87 uIU/mL (0.27-4.20) 01/06/23 13:12 Vitals Last Vital Signs Temp 97.9 F 01/07/23 04:51 Pulse 85 01/07/23 11:02 Resp 16 01/07/23 08:59 BP 136/64 01/07/23 11:02 Pulse Ox 94 01/07/23 08:59 O2 Del Method 01/07/23 08:59 Discharge Plan Discharge Patient Disposition: Home Condition: Stable Prescriptions: New lisinopril 5 mg tablet 5 mg PO DAILY Qty: 30 1RF Continued Vitamin B-12 250 mcg Tablet 250 mcg PO DAILY levothyroxine 100 mcg tablet 100 mcg PO QAM Vitamin D3 125 mcg (5,000 unit) Tablet 125 mcg PO DAILY prednisone 5 mg tablet 5 mg PO QAM leflunomide 10 mg tablet 10 mg PO QAM folic acid 1 mg tablet 1 mg PO QAM diclofenac sodium 1 % gel 2 g topical QID PRN (Reason: Pain) Rx Instructions: apply to single elbow, wrist or hand; for hand includes palm/fingers/back of hand Xeljanz XR 11 mg tablet extended release 24 hr 11 mg PO QAM Discharge Orders: Discharge Order (Routine); Ordered 01/07/23 Ordered By: Hugo Gooden Referrals: Steven Eldridge MD [Primary Care Provider] - Patient Instructions: Opioid Safety Discharge Attestations Time Spent in Discharge Care*: less than 30 min Quality Metrics Clinical Quality Measures [ No reported AMI, CVA or VTE this stay] Coding Level of Care Code Acute Code for Chg Fwd Diagnoses Hypothyroidism E03.9 Numbness and tingling of upper extremity R20.0; R20.2 Rheumatoid factor positive R76.8 ESR raised R70.0 Arthralgia M25.50
[2023-01-07] MEDS: iohexol 350 mg/mL 500 mL Btl (per mL) IV (11:50)
== END 2023-01-07 15:56 | disposition home or self-care (01) ==
LOC: ER 17:15 → ER IP 01-07 03:44 → CSU 01-07 10:59
PROVIDERS: Admitting Provider Internal Medicine; Emergency Provider Family Medicine; PCP Family Medicine; Visit Provider Internal Medicine
DX: R20.0 Anesthesia of skin (principal); R20.2 Paresthesia of skin; F17.200 Nicotine dependence, unspecified, uncomplicated; M05.9 Rheumatoid arthritis with rheumatoid factor, unspecified; Z79.52 Long term (current) use of systemic steroids; E03.9 Hypothyroidism, unspecified; G89.29 Other chronic pain; M54.2 Cervicalgia; M25.50 Pain in unspecified joint
CPT/HCPCS: 36415; 36600; 71275; 78452; 80048; 80051; 80053; 82330; 82607; 82805; 83735; 84443; 84484; 85025; 85378; 93005; 93017; 93306; 96372; 96374; 99291; A9500; G0378; J1200; J1650; J2785; Q9967

== ENCOUNTER → 2023-02-08 11:09 | Outpatient (BNVA) | payer MEDICARE, OTHER, SELFPAY | PROVIDERS: PCP Family Medicine; Visit Provider Internal Medicine | DX: M05.9 Rheumatoid arthritis with rheumatoid factor, unspecified (principal); Z79.899 Other long term (current) drug therapy | CPT/HCPCS: 99214 ==

== ENCOUNTER → 2023-06-11 09:52 | Outpatient (BNVA) | payer MEDICARE, OTHER, SELFPAY | PROVIDERS: PCP Family Medicine; Visit Provider Internal Medicine | DX: M05.9 Rheumatoid arthritis with rheumatoid factor, unspecified (principal); Z79.899 Other long term (current) drug therapy; F32.A Depression, unspecified; F41.9 Anxiety disorder, unspecified; Z79.52 Long term (current) use of systemic steroids | CPT/HCPCS: 99214 ==

== ENCOUNTER → 2023-10-13 09:56 | Outpatient (BNVA) | payer MEDICARE, OTHER, SELFPAY | PROVIDERS: PCP Family Medicine; Visit Provider Internal Medicine | DX: Z79.899 Other long term (current) drug therapy (principal); M05.9 Rheumatoid arthritis with rheumatoid factor, unspecified; D84.9 Immunodeficiency, unspecified | CPT/HCPCS: 80053; 85025; 85651; 86140 ==

== ENCOUNTER → 2023-10-15 11:30 | Outpatient (BNVA) | payer MEDICARE, OTHER, SELFPAY | PROVIDERS: PCP Family Medicine; Visit Provider Internal Medicine | DX: Z79.899 Other long term (current) drug therapy (principal); M05.9 Rheumatoid arthritis with rheumatoid factor, unspecified; M79.671 Pain in right foot; M79.672 Pain in left foot; D84.9 Immunodeficiency, unspecified; M79.673 Pain in unspecified foot | CPT/HCPCS: 99214 ==

== ENCOUNTER → 2023-10-18 11:01 | Outpatient (BNVA) | payer MEDICARE, OTHER, SELFPAY | PROVIDERS: PCP Family Medicine; Referring Provider Internal Medicine; Visit Provider Internal Medicine | DX: M05.9 Rheumatoid arthritis with rheumatoid factor, unspecified (principal); Z79.899 Other long term (current) drug therapy; M79.671 Pain in right foot; M79.672 Pain in left foot | CPT/HCPCS: 73620 ==

== ENCOUNTER → 2023-12-20 12:07 | Outpatient (BNVA) | payer MEDICARE, OTHER, SELFPAY | PROVIDERS: PCP Nurse Practitioner; Visit Provider Nurse Practitioner | DX: Z79.899 Other long term (current) drug therapy; M05.9 Rheumatoid arthritis with rheumatoid factor, unspecified; E03.9 Hypothyroidism, unspecified | CPT/HCPCS: 80053; 82306; 83036; 83550; 84443; 85025 ==

== ENCOUNTER 2024-01-05 09:25 | Outpatient (CLI) | payer MEDICARE, OTHER, SELFPAY ==
--- NOTE | 2024-01-05 09:45 | USCV_ITS ---
Kari Lugo Age: 68 Gender: F : 1955 Exam Date: 01/05/2024 10:42 Ordering Phys: Kymberly Funk SLACK LINE YARDER SLACK LINE YARDER Technologist: Exam Location: [facility] [place]_ Indication: PAIN RIGHT LEFT Brachial 162.00 mmHg Brachial 137.00 mmHg Pressure (mmHg) Waveform Pressure (mmHg) Waveform 154.00 OB/GYN DOCTOR 160.00 153.00 DPA 153.00 0.95 Ankle/Brachial Index 0.99 113.00 Pre-Exercise Toe Pressure 135.00 0.70 Pre-Exercise Toe/Brachial Index 0.83 FINDINGS Resting RONEY of 0.95 on the right side and 0.99 on the left side. Resting TBI of 0.7 on the right and 0.83 on the left CONCLUSIONS 1. Normal resting ABIs and TBIs bilaterally. No significant arterial obstruction based on the above findings Consider exercise RONEY, to better evaluate the functional significance, if clinically indicated Dr Zoe Cortes MD FACC (Electronically Signed) Final Date: 06 January 2024 09:18 S
== END 2024-01-05 09:26 | disposition home or self-care (01) ==
LOC: RAD 09:25
PROVIDERS: PCP Nurse Practitioner; Visit Provider Nurse Practitioner
DX: M79.604 Pain in right leg (principal); M79.605 Pain in left leg; M79.671 Pain in right foot; M79.672 Pain in left foot
CPT/HCPCS: 93922

== ENCOUNTER → 2024-04-13 09:59 | Outpatient (BNVA) | payer MEDICARE, OTHER, SELFPAY | PROVIDERS: PCP Nurse Practitioner; Visit Provider Nurse Practitioner | DX: N39.0 Urinary tract infection, site not specified (principal) | CPT/HCPCS: 81000 ==

== ENCOUNTER → 2024-05-03 15:51 | Outpatient (BNVA) | payer MEDICARE, OTHER, SELFPAY | PROVIDERS: PCP Nurse Practitioner; Visit Provider Nurse Practitioner | DX: R20.0 Anesthesia of skin (principal); R20.2 Paresthesia of skin; Z79.899 Other long term (current) drug therapy | CPT/HCPCS: 80053; 82306; 83036; 84443; 85025 ==

== ENCOUNTER → 2024-05-15 09:20 | Outpatient (BNVA) | payer MEDICARE, OTHER, SELFPAY | PROVIDERS: PCP Nurse Practitioner; Visit Provider Internal Medicine Rheumatology | DX: M05.9 Rheumatoid arthritis with rheumatoid factor, unspecified (principal); M79.671 Pain in right foot; M79.672 Pain in left foot; M19.90 Unspecified osteoarthritis, unspecified site; Z79.899 Other long term (current) drug therapy; Z11.1 Encounter for screening for respiratory tuberculosis; Z11.59 Encounter for screening for other viral diseases; Z71.85 Encounter for immunization safety counseling; F17.200 Nicotine dependence, unspecified, uncomplicated | CPT/HCPCS: 99215 ==

== ENCOUNTER → 2024-07-10 11:14 | Outpatient (BNVA) | payer MEDICARE, OTHER, SELFPAY | PROVIDERS: PCP Nurse Practitioner; Visit Provider Podiatrist Foot & Ankle Surgery | DX: M79.671 Pain in right foot (principal); M79.672 Pain in left foot; R20.0 Anesthesia of skin; M20.41 Other hammer toe(s) (acquired), right foot; M20.42 Other hammer toe(s) (acquired), left foot; M54.16 Radiculopathy, lumbar region; M05.9 Rheumatoid arthritis with rheumatoid factor, unspecified | CPT/HCPCS: 73630; 99204 ==

== ENCOUNTER → 2024-09-19 13:59 | Outpatient (BNVA) | payer MEDICARE, OTHER, SELFPAY | PROVIDERS: PCP Nurse Practitioner; Referring Provider Podiatrist Foot & Ankle Surgery; Visit Provider Specialist | DX: R20.0 Anesthesia of skin (principal); G62.89 Other specified polyneuropathies | CPT/HCPCS: 95910 ==

== ENCOUNTER → 2024-10-03 11:36 | Outpatient (BNVA) | payer MEDICARE, OTHER, SELFPAY | PROVIDERS: PCP Nurse Practitioner; Visit Provider Nurse Practitioner | DX: R50.9 Fever, unspecified (principal); Z79.899 Other long term (current) drug therapy; M05.9 Rheumatoid arthritis with rheumatoid factor, unspecified | CPT/HCPCS: 80061; 80076; 82565; 85025; 85651; 86140 ==

== ENCOUNTER 2024-10-11 06:00 | Outpatient (RCR) | payer MEDICARE, OTHER, SELFPAY | END 2024-10-31 23:59 | disposition home or self-care (01) | LOC: MPT 06:00 | PROVIDERS: PCP Nurse Practitioner; Visit Provider Internal Medicine Rheumatology | DX: M62.81 Muscle weakness (generalized) (principal); R26.81 Unsteadiness on feet | CPT/HCPCS: 97110; 97112; 97162 ==

== ENCOUNTER → 2025-03-14 08:57 | Outpatient (BNVA) | payer MEDICARE, OTHER, SELFPAY | PROVIDERS: Referring Provider Internal Medicine Rheumatology; Visit Provider Specialist | DX: G62.89 Other specified polyneuropathies (principal) | CPT/HCPCS: 36415; 82607; 82728; 82746; 83036; 83520; 83540; 86334; 99204 ==

== ENCOUNTER → 2025-04-11 12:09 | Outpatient (BNVA) | payer MEDICARE, OTHER, SELFPAY | PROVIDERS: PCP Nurse Practitioner; Visit Provider Nurse Practitioner | DX: E03.9 Hypothyroidism, unspecified (principal) | CPT/HCPCS: 80053; 80061; 84443; 85025 ==

== ENCOUNTER 2025-05-03 15:21 | Outpatient (CLI) | payer MEDICARE, OTHER, SELFPAY ==
--- NOTE | 2025-05-03 15:20 | MM_ITS ---
WS: [id number] BILATERAL 3D TOMOSYNTHESIS DIGITAL SCREENING MAMMOGRAPHY WITH CAD CLINICAL INFORMATION: Z12.39 - Encounter for other screening for malignant neop... HISTORY: Screening mammogram. No current complaints. COMPARISON: New baseline TECHNIQUE: Bilateral CC and MLO views. FINDINGS: Scattered fibroglandular densities bilaterally. No suspicious focal mass, asymmetry, calcifications, or architectural distortion. No evidence of malignancy. Punctate lucent centered calcifications RIGHT breast MM/MM scr BI tomosynthesis [id number] IMPRESSION: DENSITY: There are scattered areas of fibroglandular density. BI-RADS: 2 - Benign. FOLLOW UP: 1 Year Follow-up Recommend return to annual screening mammography.
== END 2025-05-03 15:22 | disposition home or self-care (01) ==
PROVIDERS: PCP Nurse Practitioner; Visit Provider Nurse Practitioner
DX: Z12.31 Encounter for screening mammogram for malignant neoplasm of breast (principal)
CPT/HCPCS: 77063; 77067

== ENCOUNTER → 2025-09-03 11:03 | Outpatient (BNVA) | payer MEDICARE, OTHER, SELFPAY | PROVIDERS: PCP Nurse Practitioner; Visit Provider Nurse Practitioner | DX: E03.9 Hypothyroidism, unspecified (principal); Z79.899 Other long term (current) drug therapy; M05.9 Rheumatoid arthritis with rheumatoid factor, unspecified; F41.9 Anxiety disorder, unspecified | CPT/HCPCS: 80053; 80076; 82306; 82565; 83036; 83735; 84439; 84443; 84481; 85025; 85651; 86140 ==

== ENCOUNTER 2025-09-16 10:00 | Inpatient (IN) | payer MEDICARE, OTHER, SELFPAY ==
[2025-09-16] VITALS (12 sets, daily range): BP systolic 94–149; BP diastolic 61–99; PULSE 55–68; RESP 13–21; TEMP 36.4–36.9; O2SAT 90–99; BMI 32.1; BMI 32.0
--- NOTE | 2025-09-16 10:01 | XRR_ITS ---
PROCEDURE INFORMATION: Exam: XR Chest Exam date and time: 09/16/2025 10:12 AM Age: 70 years old Clinical indication: Pain; Chest pressure; Additional info: Chest pain TECHNIQUE: Imaging protocol: Radiologic exam of the chest. Views: 1 view. COMPARISON: CT angio chest PE protcl [id number] 01/07/2023 11:46 AM FINDINGS: Lungs: No active infiltrate or focal parenchymal abnormality. Pulmonary vascularity is normal. Pleural spaces: No pleural effusion. No pneumothorax. Heart/Mediastinum: Normal cardiomediastinal sillhouette. Bones/joints: Unremarkable. XR/XR chest 1V portable [id number] IMPRESSION: No acute cardiopulmonary abnormality.
--- OUTSIDE RECORDS SUMMARY | 2025-09-16 10:04 | XMS_ITS | Encounter Summary ---
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
--- OUTSIDE RECORDS SUMMARY | 2025-09-16 10:04 | XMS_ITS | Encounter Summary ---
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
--- OUTSIDE RECORDS SUMMARY | 2025-09-16 10:04 | XMS_ITS | Encounter Summary ---
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
--- OUTSIDE RECORDS SUMMARY | 2025-09-16 10:05 | XMS_ITS | Clinical Summary ---
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
--- OUTSIDE RECORDS SUMMARY | 2025-09-16 10:05 | XMS_ITS | Clinical Summary ---
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
--- NOTE | 2025-09-16 10:06 | ED_ITS ---
HPI - Chest Pain 2 General: Chief Complaint: Chest Pain Stated Complaint: chest pain; sob Time Seen by Provider: 09/16/25 10:01 Source: patient and EMS Mode of arrival: EMS Limitations: no limitations History of Present Illness: 70-year-old female states she woke up th is morning around 7 states she had some anxiety has a history anxiety is having chest pains along with some dyspnea. States the pain sharp pain across her chest states she did take her anxiety pill and had no improvement so called EMS has received nitro and route states her pain is lessened slightly is currently 3 out of 10 states she is allergic to aspirin she denies any cough or fever nausea Related Data Home Medications ?Medication ?Instructions ?Recorded ?Confirmed cholecalciferol (vitamin D3) 125 125 mcg PO DAILY 06/2309/16/25 mcg (5,000 unit) tablet (Vitamin D3) cyanocobalamin (vitamin B-12) 250 250 mcg PO DAILY 06/2309/16/25 mcg tablet (Vitamin B-12) diclofenac sodium 1 % topical gel 2 g topical QID PRN Pain 01/06/23 09/16/25 B-complex with vitamin C 1 tab PO .QOD 12/20/2309/16 docosahexaenoic acid 200 mg 200 mg PO DAILY 12/20/23 1 11/16/24 capsule (Algal [place]-3 DHA) albuterol sulfate 90 mcg/actuation 1 - 2 puff inhalati on QID PRN 09/16/25 09/16/25 aerosol inhaler Shortness Of Breath Or Wheez ing folic acid 1 mg tablet 1 mg PO QAM 09/16/25 5 prednisone 5 mg tablet 5 mg PO DAILY 09/16/2509/16 Previous Rx's ?Medication ?Instructions ?Recorded levothyroxine 100 mcg tablet 100 mcg PO QAM #90 tabs 0 04/19/25 leflunomide 20 mg tablet 20 mg PO DAILY #90 tabs 08/03 11/25 tofacitinib 11 mg tablet,extended 11 mg PO QAM #30 tab s 08/31/25 release 24 hr (Xeljanz XR) propranolol 10 mg tablet 10 mg PO BID PRN anxiety #60 tabs 09/03/25 Allergies Allergy/AdvReac Type Severity Reaction Status Date / Time aspirin Allergy rash Verified 09/03/25 10:40 Penicillins Allergy rash Verified 09/03/25 10:40 Review of Systems 2 Card: Reports: chest pain PFSH ED 2 PFSH: Medical History (Updated 09/16/25 @ 11:37 by Mario Magaña MD) Hypothyroidism Numbness and tingling of upper extremity Non-ST elevation [place] (NSTEMI) ESR raised Rheumatoid factor positive Arthralgia Surgical History Hx of cholecystectomy Social History Smoking and tobacco/nicotine status: former use of tobacco/nicotine Alcohol intake: current Alcohol intake frequency: few times a month Physical Exam 2 Const: COMMON NORMALS: patient oriented x3 HENMT: COMMON NORMALS: normocephalic and atraumatic HEAD & SCALP: n ormocephalic and atraumatic Neck/C-Spine: COMMON NORMALS: full ROM and supple Chest: COMMONS NORMALS: normal inspection of the chest and normal palpation of entire chest wall Resp: COMMON NORMALS: normal respiratory effort, No retractions, No use of accessory muscles and clear to auscultation bilaterally AUSCULTATION: clear to auscultation bilaterally Cardio: COMMON NORMALS: regular rate, regular rhythm and No murmurs present (Cardio) RATE: regular rate RHYTHM: regular rhythm GI: COMMON NORMALS: Normal to inspection, nondistended, normoactive bowel sounds present, Soft to palpation, non-tender and no masses PALPATION: Yes Soft to palpation Extremity: COMMON NORMALS: normal to inspection and full ROM Neuro: COMMON NORMALS: patient oriented x3, moves all extremities and no focal motor deficits Psych: COMMON NORMALS: mental status grossly normal, Normal thought process present and cooperative THOUGHT PROCESS: Normal thought process present Skin: COMMON NORMALS: no rashes or lesions noted and no wounds GENERAL SKIN EXAM: no rashes or lesions noted Course 2 Vital Signs: Vital signs: Vital Signs Temperature 97.6 F 09/16/25 10:01 Pulse Rate 59 L 09/16/25 11:05 Respiratory Rate 15 09/16/25 11:05 Blood Pressure 125/88 09/16/25 11:05 Pulse Oximetry 99 09/16/25 11:05 Oxygen Delivery Me thod Room Air 09/16/25 10:01 MDM - Chest Pain Medical Decision Making 70-year-old female presented here with chest pain that began this morning. She has not given aspirin she is allergic to aspirin her pain was resolved here with morphine. Differential includes pulmonary emboli, pneumothorax, aortic dissection, ACS. Patient has no signs of pulm emboli here chest x-ray was interpreted by me showed no acute abnormalities no signs of mediastinal widening or pneumothorax. Her initial troponin here is elevated at 145 with a heart score of 7. EKG here showed sinus bradycardia heart rate [address] elevation QRS 81 QTc 408. I did speak to Dr. Villalta of cardiology who is consulted did give patient Plavix along with Lovenox. I spoke to hospitalist Dr. ELIZABETH ROBERT who is admitting. I did go over all this with patient who understands agrees to plan Medical Records I reviewed the patient's medical records. Lab Data I reviewed the patient's lab results. 09/16/25 10:26 09/16/25 10:26 Radiology Impressions Chest X-Ray 09/16/25 10:01 IMPRESSION: No acute cardiopulmonary abnormality. Laboratory Results WBC 6.76 10^3/uL (3.29-11.43) 09/16/25 10:26 RBC 5.15 10^6/uL (3.85-5.65) 09/16/25 10:26 Hgb 15.40 g/dL (11.27-16.99) 09/16/25 10:26 Hct 47.2 % (36-47) H 09/16/25 10:26 MCV 91.7 fl (85-98) 09/16/25 10:26 MCH 29.9 pg (27-33) 09/16/25 10:26 MCHC 32.6 g/dL (30-55) 09/16/25 10:26 RDW 13.8 % (12.1-15.1) 09/16/25 10:26 Plt Count 231 10^3/cmm (157-399) 09/16/25 10:26 MPV 9.5 fL (7.4-10.4) 09/16/25 10:26 Neut % (Auto) 74.0 % 09/16/25 10:26 Lymph % (Auto) 11.8 % 09/16/25 10:26 [place] % (Auto) 9.6 % 09/16/25 10:26 Eos % (Auto) 3.4 % 09/16/25 10:26 Baso % (Auto) 0.9 % 09/16/25 10:26 Neut # (Auto) 5.00 10^3/uL (1.8-7.7) 09/16/25 10:26 Lymph # (Auto) 0.8 10^3/uL (0.8-4.8) 09/16/25 10:26 [place] # (Auto) 0.7 10^3/uL (0.2-0.9) 09/16/25 10:26 Eos # (Auto) 0.2 10^3/uL (0.0-0.8) 09/16/25 10:26 Baso # (Auto) 0.1 10^3/uL (0.0-0.1) 09/16/25 10: Nucleated RBC % (auto) 0 % 09/16/25 10: Nucleated RBCs # 0.0 /100WBC 09/16/25 10:26 PT 12.10 SECONDS (12.1-14.9) 09/16/25 10:26 INR 0.84 (0.8-1.2) 09/16/25 10:26 Sodium 142 mmol/L (136-145) 09/16/25 10:26 Potassium 4.2 mmol/L (3.5-5.1) 09/16/25 10:26 Chloride 104 mmol/L (98-107) 09/16/25 10: Carbon Dioxide 28 mmol/L (22-29) 09/16/25 10:26 Anion Gap 14.2 (5-19) 09/16/25 10:26 BUN 7 mg/dL (8-23) L 09/16/25 10:26 Creatinine 0.7 mg/dL (0.5-0.9) 09/16/25 10:26 GFR Calculation Not Reportable 09/16/25 10:26 Glucose 129 mg/dL (65-115) H 09/16/25 10:26 Calculated Osmolality 294 mOsm/kg (285-295) 09/16/25 10:26 Calcium 9.2 mg/dL (8.5-10.5) 09/16/25 10:26 Total Bilirubin 0.8 mg/dL (0.15-1.2) 09/16/25 10:26 AST 21 U/L (0-32) 09/16/25 10:26 ALT 22 U/L (0-33) 09/16/25 10:26 Alkaline Phosphatase 79 U/L (35-105) 09/16/25 10:26 Troponin T Baseline 145 ng/L (0-10) H* 09/16/25 10:26 Total Protein 6.7 g/dL (6.6-8.7) 09/16/25 10:26 Albumin 4.0 g/dL (3.5-5.2) 09/16/25 10:26 Globulin 2.7 g/dL (1.3-4.6) 09/16/25 10:26 Lipase 28 U/L (13-60) 09/16/25 10:26 All radiology interpretation(s) finalized by discharge EKG Data EKG 1: I personally reviewed and interpreted this EKG as follows: EKG interpretation date: 09/16/25 EKG interpretation time: 10:06 Interpretation: sinus thuan hr [address] elevation qrs 81 qtc 408 Discharge Plan Discharge Patient Disposition: Admitted As Inpatient Clinical Impression: Non-ST elevation FL (NSTEMI) Condition: Stable Coding Level of Care Code ED Porcelain Finisher for Chg Fwsandhya Heart Score HEART Score Components History: Moderately Suspicious EKG: Non-specific Changes Age: 65 or more yrs Risk Factors: 1 or 2 Risk Factors Troponin: Baseline Trop >45 ng/L HEART Score RESULT HEART Score: 7
--- NOTE | 2025-09-16 10:06 | ECG_ITS ---
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 Measurements Intervals [place] Rate: 54 P: 54 ND: 142 QRS: 45 QRSD: 81 T: 61 QT: 421 QTc: 401 Interpretive Statements SINUS BRADYCARDIA MINIMAL ST DEPRESSION [0.05+ mV ST DEPRESSION] Compared to ECG 01/06/2023 19:22:03 NO SIGNIFICANT CHANGE Electronically Signed On 09-16-2025 15:01:13 LIQUIFIED NATURAL GAS TECHNICIAN by Jitendra Villalta M.D. [email or web address]
[2025-09-16 10:31] LABS: Hematocrit 47.2 % (36-47); Hemoglobin 15.40 g/dL (11.27-16.99); Mean Corpuscular HGB Conc 32.6 g/dL (30-55); Mean Corpuscular Hemoglobin 29.9 pg (27-33); Mean Corpuscular Volume 91.7 fl (85-98); Nucleated Red Blood Cells % 0 %; Platelet Count 231 10^3/cmm (157-399); Red Blood Count 5.15 10^6/uL (3.85-5.65); White Blood Count 6.76 10^3/uL (3.29-11.43)
[2025-09-16] MEDS: ondansetron 2 mg/ML SDV 2 mL 4 MG IVP (10:44)
[2025-09-16] MEDS: morphine 4 mg/mL SDV 1 mL IVP (10:47)
[2025-09-16 10:54] LABS: INR 0.84 (0.8-1.2); Prothrombin Time 12.10 SECONDS (12.1-14.9)
[2025-09-16 11:07] LABS: Alanine Aminotransferase 22 U/L (0-33); Albumin Level 4.0 g/dL (3.5-5.2); Alkaline Phosphatase 79 U/L (35-105); Anion Gap 14.2 (5-19); Aspartate Amino Transferase 21 U/L (0-32); Blood Urea Nitrogen 7 mg/dL (8-23); Calcium 9.2 mg/dL (8.5-10.5); Carbon Dioxide 28 mmol/L (22-29); Chloride 104 mmol/L (98-107); Globulin 2.7 g/dL (1.3-4.6); Glucose 129 mg/dL (65-115); Lipase 28 U/L (13-60); Osmolality Calculated 294 mOsm/kg (285-295); Potassium 4.2 mmol/L (3.5-5.1); Sodium 142 mmol/L (136-145); Total Protein 6.7 g/dL (6.6-8.7)
[2025-09-16 11:11] LABS: Troponin(5th) Baseline 145 ng/L (0-10)
--- NOTE | 2025-09-16 11:19 | USCV_ITS ---
Kari Lugo Age: 70 Gender: F : 1955 Exam Date: 09/16/2025 12:11 Ordering Phys: Mario Magaña MD Technologist: KEN Exam Location: [facility] [place] Indication: cp BP: 125 / 88 HR: 56 Rhythm: Sinus Technical Quality: Adequate MEASUREMENTS (Male / Female) Normal Values 2D ECHO LV Diastolic Diameter PLAX 5.1 cm 4.2 - 5.9 / 3.9 - 5.3 cm IVS Diastolic Thickness 0.7 cm 0.6 - 1.0 / 0.6 - 0.9 cm IVS Systolic Thickness 1.1 cm LVPW Diastolic Thickness 0.9 cm 0.6 - 1.0 / 0.6 - 0.9 cm LVPW Systolic Thickness 1.7 cm LVOT Diameter 2.0 cm LV Ejection Fraction 2D Teich 66.8 % LV Ejection Fraction MOD 4C 75.0 % LV Ejection Fraction MOD 2C 68.1 % LV Ejection Fraction 2C AL 68.1 % LA Diameter 4.1 cm RA Systolic Volume 4C AL 32.1 ml RA Systolic Volume 4C MOD 29.0 ml LA Sys Volume AL 42.3 cm cubed LA Sys Volume Index AL 19.0 cm cubed/m squared Aorta at Sinotubular Diameter 2.4 cm IVC Diameter 1.7 cm M-MODE LA Ao Ratio MM 1.6 AV Cusp Separation MM 1.3 cm DOPPLER AV Peak Velocity 114.0 cm/s LVOT Peak Velocity 90.0 cm/s AV Area Cont Eq vti 3.1 cm squared AV Area Cont Eq pk 2.5 cm squared MV Peak Velocity 100.0 cm/s MV Area PHT 3.4 cm squared Mitral E to A Ratio 0.8 TV Peak Velocity 282.7 cm/s TR Peak Velocity 295.0 cm/s TR Peak Gradient 34.8 mmHg TR Mean Velocity 237.0 cm/s TR Mean Gradient 24.3 mmHg TR Velocity Time Integral 66.8 cm PV Peak Velocity 94.0 cm/s RV Ejection Time 0.3 s FINDINGS Left Ventricle Normal left ventricular size. There is severe hypokinesis of the mid and basal inferior wall segments. Normal left ventricular ejection fraction of 68%. Normal left ventricular diastolic function. Right Ventricle Normal right ventricular size and systolic function. Right Atrium Normal right atrial size. Left Atrium Normal left atrial size. IA Septum Normal appearance of the interatrial septum. Mitral Valve Normal mitral valve structure. Trace to mild regurgitation. Aortic Valve Mild aortic valve calcification without stenosis or regurgitation Tricuspid Valve Normal tricuspid valve structure. Mild regurgitation. Normal pulmonary pressure. Pulmonic Valve Normal pulmonic valve structure. No pulmonic valve stenosis or regurgitation. Pericardium No pericardial effusion. Aorta Normal diameter of the aortic root and ascending thoracic aorta. IVC Normal IVC diameter. CONCLUSIONS There is severe hypokinesis of the mid and basal inferior wall segments. Normal global left ventricular systolic function with EF of 68%. Normal right ventricular size and systolic function. No significant valvular abnormalities. Jitendra Villalta MD, FACC (Electronically Signed) Final Date: 16 September 2025 13:12 S
--- NOTE | 2025-09-16 12:06 | ECG_ITS ---
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 Measurements Intervals [place] Rate: 57 P: 48 NE: 148 QRS: 45 QRSD: 78 T: 58 QT: 422 QTc: 411 Interpretive Statements SINUS BRADYCARDIA Compared to ECG 09/16/2025 10:06:38 ST (T wave) deviation no longer present Electronically Signed On 09-16-2025 15:35:51 MUTUAL FUNDS AGENT by Jitendra Villalta M.D. [id number]
--- NOTE | 2025-09-16 12:15 | PM.CONSULT ---
Providers/Reason For Consult Consulting Physician/Specialty*: Jitendra Villalta MD Reason for Consult*: Chest pain Requesting Physician: Devyn Mcintyre MD Attending Physician: Devyn Mcintyre MD Primary Care Provider: JILL Gonzalez History of Present Illness History of Present Illness Kari Lugo is a 70 year old female with rheumatoid arthritis, HLD, and polyneuropathy who presents to the ER with chest pain. EKG shows no ST- T wave abnormalities and mild sinus bradycardia. Trop is elevated at 145. She states SL nitro given by EMS did help improve the CP echo 2022: Normal left ventricular size and systolic function, EF 59 %. No regional wall motion abnormalities. Grade I/IV diastolic dysfunction (abnormal relaxation filling pattern), normal to mildly elevated filling pressures. Mild left ventricular hypertrophy. Mildly increased right ventricular size. Normal right ventricular systolic function. Mildly increased right atrial size. Trace tricuspid valve regurgitation. PA pressure was not calculated because of the poor Doppler signals CT chest in 2022 with calcification of the aorta Medications/Allergies Home Medications ?Medication ?Instructions ?Recorded ?Confirmed ?Last Taken ?Type cholecalciferol (vitamin D3) 125 125 mcg PO DAILY 01/06/23 09/16/25 09/15/25 History mcg (5,000 unit) tablet (Vitamin D3) cyanocobalamin (vitamin B-12) 250 250 mcg PO DAILY 01/06/23 09/16/25 09/15/25 History mcg tablet (Vitamin B-12) diclofenac sodium 1 % topical gel 2 g topical QID PRN Pain 01/06/23 09/16/25 Unknown History B-complex with vitamin C 1 tab PO .QOD 12/20/23 09/16/25 09/14/25 History docosahexaenoic acid 200 mg 200 mg PO DAILY 12/20/23 09/16/25 09/15/25 History capsule (Algal [place]-3 DHA) levothyroxine 100 mcg tablet 100 mcg PO QAM #90 tabs 04/19/25 09/16/25 09/15/25 Rx leflunomide 20 mg tablet 20 mg PO DAILY #90 tabs 08/31/25 09/16/25 09/15/25 Rx tofacitinib 11 mg tablet,extended 11 mg PO QAM #30 tabs 10/31/25 11/16/25 11/15/25 Rx release 24 hr (Xeljanz XR) propranolol 10 mg tablet 10 mg PO BID PRN anxiety #60 tabs 09/03/25 09/16/25 09/16/25 Rx albuterol sulfate 90 mcg/actuation 1 - 2 puff inhalation QID PRN 09/16/25 09/16/25 Unknown History aerosol inhaler Shortness Of Breath Or Wheezing folic acid 1 mg tablet 1 mg PO QAM 09/16/25 09/16/25 09/15/25 History prednisone 5 mg tablet 5 mg PO DAILY 09/16/25 09/16/25 09/15/25 History Allergies Allergy/AdvReac Type Severity Reaction Status Date / Time aspirin Allergy rash Verified 09/03/25 10:40 Penicillins Allergy rash Verified 09/03/25 10:40 PFSH Acute PFSH: Medical History (Updated 09/16/25 @ 12:24 by Jitendra Villalta MD) Hypothyroidism Numbness and tingling of upper extremity Non-ST elevation [place] (NSTEMI) ESR raised Rheumatoid factor positive Arthralgia Surgical History Hx of cholecystectomy Social History Smoking and tobacco/nicotine status: former use of tobacco/nicotine Alcohol intake: current Alcohol intake frequency: few times a month Vitals/I&O/Wt Last Vital Signs Temp 97.6 F 09/16/25 10:01 Pulse 59 L 09/16/25 11:05 Resp 15 09/16/25 11:05 BP 125/88 09/16/25 11:05 Pulse Ox 99 09/16/25 11:05 O2 Del Method Room Air 09/16/25 10:01 Weight last 48 hrs Weight 218 lb Physical Exam Narrative: General: In no acute distress Neck: No jugular venous distention or carotid bruits Heart: Normal S1 and S2 with a regular rate and rhythm, no cardiac murmurs Lungs: Normal respiratory effort with no use of intercostal muscles, clear lungs sounds to auscultation Extremities: No lower extremity edema Neuro: Alert and oriented x 3 Data 09/16/25 10:26 09/16/25 10:26 A&P Assessment and plan 1. Non-ST elevation W[place] (NSTEMI): no ST elevation or change compared to EKG in 2022 Possible ACS Lovenox 1 mg/kg x 1 in ER Plavix 300mg x 1 in ER start atorvastatin 40mg qhs Potential cardiac cath tomorrow - Will need to discuss antiplatelet regimen with Interventionalist prior to cath however since allergic to ASA. Typically needs DAPT for potential DALI. Will see if monotherapy with Brilinta is an option 2. HLD (hyperlipidemia): start atorvastatin 40mg qhs 3. Calcification of aorta: clopidogrel plus statin for now 4. Chest pain: possible ACS check ddimer 5. Aspirin allergy: Will need to discuss antiplatelet regimen with Interventionalist since allergic to ASA Plan: Keep NPO after midnight PDMP PDMP Reviewed: Not Reviewed Coding Level of Care Code 80954 Diagnoses Non-ST elevation [place] (NSTEMI) I21.4 HLD (hyperlipidemia) E78.5 Calcification of aorta I70.0 Chest pain R07.9 Aspirin allergy Z88.8
[2025-09-16 12:51] LABS: Troponin 5 2HR 271.5 ng/L (0-10); Troponin 5 2HR Delta 126.5 ABS# (0-10)
--- NOTE | 2025-09-16 12:59 | CTR_ITS ---
PROCEDURE INFORMATION: Exam: CTA Chest With Contrast Exam date and time: 09/16/2025 4:20 PM Age: 70 years old Clinical indication: Abnormal findings; Abnormal diagnostic tests; Elevated d-dimer; Additional info: Elevated ddimer TECHNIQUE: Imaging protocol: Computed tomographic angiography of the chest with contrast. Exam focused on the arteries. 3D rendering (Not supervised by radiologist): MIP and/or 3D reconstructed images were created by the technologist. Radiation optimization: All CT scans at this facility use at least one of these dose optimization techniques: automated exposure control; mA and/or kV adjustment per patient size (includes targeted exams where dose is matched to clinical indication); or iterative reconstruction. Contrast material: OMNI 350; Contrast volume: 100 ml; Contrast route: INTRAVENOUS (IV); COMPARISON: CT angio chest PE protcl [id number] 01/07/2023 11:46 AM RADIATION DOSE METRICS: Total DLP (mGy-cm): 445.8 FINDINGS: Pulmonary arteries: Normal. No pulmonary emboli. Aorta: Unremarkable. No aortic aneurysm. No aortic dissection. Lungs: There is diffuse bronchial wall thickening throughout both lungs along with mucous plugging involving both lung bases. There is patchy atelectasis in both lung bases but I see no lung infiltrate or mass. Atelectasis also involves the lingula. Pleural spaces: Unremarkable. No pneumothorax. No pleural effusion. Heart: Unremarkable. No cardiomegaly. No pericardial effusion. Lymph nodes: Unremarkable. No enlarged lymph nodes. Bones/joints: Unremarkable. No acute fracture. Soft tissues: Unremarkable. CT/CT angio chest PE protcl [id number] IMPRESSION: Findings consistent with chronic reactive airway disease
--- NOTE | 2025-09-16 16:01 | ECG_ITS ---
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 Measurements Intervals [place] Rate: 57 P: 44 CA: 145 QRS: 51 QRSD: 83 T: 62 QT: 425 QTc: 414 Interpretive Statements SINUS BRADYCARDIA MINIMAL ST DEPRESSION Compared to ECG 09/16/2025 12:06:37 No significant changes Electronically Signed On 09-16-2025 16:06:17 FIELD ENUMERATOR by Jitendra Villalta M.D. [email or web address]
[2025-09-16] MEDS: iohexol 350 mg/mL 500 mL Btl (per mL) IV (16:27)
[2025-09-16 16:33] LABS: Estmated Average Glucose 105; Hemoglobin A1C 5.3 % (4.0-6.0)
[2025-09-16 16:52] LABS: Troponin 5 6HR 334.9 ng/L (0-10); Troponin 5 6HR Delta 189.9 ng/L (0-12)
--- NOTE | 2025-09-16 19:18 | PM.HP ---
Providers/Chief Complaint Admitting Physician: Devyn Mcintyre MD Primary Care Provider: JILL Gonzalez Chief Complaint: chest pain; sob History of Present Illness Kari Lugo is a 70 year old female with prior medical history of aspirin allergy, aortic calcification, neuropathy, HLD, NSTEMI, PNA, anxiety, hypothyroidism, cholecystectomy (1975), foot problem, pneumonia, and arthritis presenting with complaints of chest pain. Patient reports that in the 0700 hour this morning she began having what felt like a reoccurring anxiety attack. She takes propranolol for this and took 1 but it did not relieve her symptoms. Admits shortness of breath, chest pain, and anxiety. Admits headache this morning to her bilateral temples that has improved and some episodes of diarrhea that cleared up by 09/14. Denies nausea, vomiting, or any other modifying factors. EMS was called and she was brought here to [facility] ED via ambulance. Nitroglycerin given and route. Patient is allergic to aspirin. Admits current smoking- 3/4 packs per day since age 17. 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 In the ED, BP 121/68, HR 63, RR 17, T97.9, O2 95%. WBC 6.76, Hgb 15.4, PLT 231. D-dimer 3.93. BUN 7, creatinine 0.7. Glucose 129. Troponin 145 > 126.5 > 189.9. CXR; no acute cardiopulmonary abnormality. CT angio chest PE protocol; findings consistent with chronic reactive airway disease. Will admit to hospitalist service for further evaluation and treatment Review of Systems Const: Reports: chills and fatigue; Denies: fever(s), change in weight or night sweats Eyes: Denies: change in vision ENMT: Denies: throat pain Card: Reports: chest pain, swelling of feet/ankles, dyspnea on exertion and orthopnea Resp: Denies: dyspnea or productive cough GI: Denies: abdominal pain or change in bowel habits : Denies: difficulty voiding Musc: Denies: joint pain Skin/Breast: Denies: rash Neuro: Reports: headache(s); Denies: numbness in extremities or weakness in extremities Psych: Reports: anxiety and depression Endo: Reports: tired all the time; Denies: polyuria or polydipsia Jose/Lymph: Denies: easy bruising Medications/Allergies Home Medications ?Medication ?Instructions ?Recorded ?Confirmed ?Last Taken ?Type cholecalciferol (vitamin D3) 125 125 mcg PO DAILY 01/06/23 09/16/25 09/15/25 History mcg (5,000 unit) tablet (Vitamin D3) cyanocobalamin (vitamin B-12) 250 250 mcg PO DAILY 01/06/23 09/16/25 09/15/25 History mcg tablet (Vitamin B-12) diclofenac sodium 1 % topical gel 2 g topical QID PRN Pain 01/06/23 09/16/25 Unknown History B-complex with vitamin C 1 tab PO .QOD 12/20/23 09/16/25 09/14/25 History docosahexaenoic acid 200 mg 200 mg PO DAILY 12/20/23 09/16/25 09/15/25 History capsule (Algal [place]-3 DHA) levothyroxine 100 mcg tablet 100 mcg PO QAM #90 tabs 04/19/25 09/16/25 09/15/25 Rx leflunomide 20 mg tablet 20 mg PO DAILY #90 tabs 08/31/25 09/16/25 09/15/25 Rx tofacitinib 11 mg tablet,extended 11 mg PO QAM #30 tabs 08/31/25 09/16/25 09/15/25 Rx release 24 hr (Xeljanz XR) propranolol 10 mg tablet 10 mg PO BID PRN anxiety #60 tabs 09/03/25 09/16/25 09/16/25 Rx albuterol sulfate 90 mcg/actuation 1 - 2 puff inhalation QID PRN 09/16/25 09/16/25 Unknown History aerosol inhaler Shortness Of Breath Or Wheezing folic acid 1 mg tablet 1 mg PO QAM 09/16/25 09/16/25 09/15/25 History prednisone 5 mg tablet 5 mg PO DAILY 09/16/25 09/16/25 09/15/25 History Allergies Allergy/AdvReac Type Severity Reaction Status Date / Time aspirin Allergy rash Verified 09/03/25 10:40 Penicillins Allergy rash Verified 09/03/25 10:40 PFSH Acute PFSH: Medical History (Reviewed 09/16/25 @ 19:18 by Samia Murrell, VETERINARY LABORATORY TECHNICIAN, WINDOW DISPLAY DESIGNER) Hypothyroidism Numbness and tingling of upper extremity Non-ST elevation [place] (NSTEMI) ESR raised Rheumatoid factor positive Arthralgia Surgical History Hx of cholecystectomy Social History Smoking and tobacco/nicotine status: former use of tobacco/nicotine Alcohol intake: current Alcohol intake frequency: few times a month Vitals/I&O/Wt Last Vital Signs Temp 97.9 F 09/16/25 13:15 Pulse 63 09/16/25 16:00 Resp 17 09/16/25 16:00 BP 121/68 09/16/25 16:00 Pulse Ox 95 09/16/25 16:00 O2 Del Method Room Air 09/16/25 14:00 09/16/25 09/16/25 09/16/25 06:59 14:59 22:59 Intake Total 360 / 360 Balance 360 / 360 Weight last 48 hrs Weight 98.3 kg Weight 98.883 kg Physical Exam Narrative: General: In no acute distress Neck: No jugular venous distention or carotid bruits Heart: Normal S1 and S2 with a regular rate and rhythm, no cardiac murmurs Lungs: Normal respiratory effort with no use of intercostal muscles, clear lungs sounds to auscultation Extremities: No lower extremity edema Neuro: Alert and oriented x 3 Data 09/16/25 10:26 09/16/25 10:26 A&P Assessment and plan 1. Non-ST elevation [place] (NSTEMI): EKG; sinus bradycardia 2022 echocardiogram; EF 59% 09/16/2025 echocardiogram; EF 68%, severe hypokinesis of the mid and basal inferior wall segments normal global left ventricular systolic function, no significant valvular abnormalities, see for results Lovenox started in ED Plavix, Atorvastatin N.p.o. at midnight for possible heart cath Cardiology consulted, recommendations appreciated 2. Dyspnea: With and without exertion Patient reports she has had increasing dyspnea over the last 1 to 2 years more pronounced recently CXR; no acute cardiopulmonary abnormality CT angio chest PE protocol; findings consistent with chronic reactive airway disease, no pleural effusion, no pneumothorax, no PE, see full results Pulse oximetry O2 95% in this ED Supplemental O2 to keep saturations greater than 92% Home O2 assessment prior to discharge PT/OT 3. Chest pain: Nitroglycerin given by EMS, chest pain symptoms improved D-dimer; Pain management Cardiology on board 4. HLD (hyperlipidemia): Atorvastatin 40mg started 5. Aspirin allergy: Cardiology aware Dual antiplatelet therapy versus monotherapy considerations 6. Hypothyroidism: Continue home levothyroxine 7. Anxiety: With depression Last office visit for this was 09/03/2025 Patient takes propranolol at home for this 8. Nicotine dependence: Patient has smoked 3/4 pack per day since age 17 Cessation education Plan: Possible PCI tomorrow. N.p.o. after midnight. PDMP PDMP Reviewed: Not Reviewed Attestations Medical Necessity Statement*: Continued hospitalization for > 2 midnights to monitor chest pain protocol with possible percutaneous intervention tomorrow. N.p.o. at midnight. Inpatient status. Coding Level of Care Code Acute Code for [facility] Fwd Diagnoses Non-ST elevation [place] (NSTEMI) I21.4 Dyspnea R06.00 Chest pain R07.9 HLD (hyperlipidemia) E78.5 Aspirin allergy Z88.8 Hypothyroidism E03.9 Anxiety F41.9 Nicotine dependence F17.200
[2025-09-17] VITALS (37 sets, daily range): BP systolic 93–126; BP diastolic 43–74; PULSE 50–82; RESP 2–19; TEMP 35.8–36.8; O2SAT 89–99
[2025-09-17 03:52] LABS: Hematocrit 41.2 % (36-47); Hemoglobin 13.40 g/dL (11.27-16.99); Mean Corpuscular HGB Conc 32.5 g/dL (30-55); Mean Corpuscular Hemoglobin 30.1 pg (27-33); Mean Corpuscular Volume 92.6 fl (85-98); Nucleated Red Blood Cells % 0 %; Platelet Count 173 10^3/cmm (157-399); Red Blood Count 4.45 10^6/uL (3.85-5.65); White Blood Count 5.32 10^3/uL (3.29-11.43)
[2025-09-17 04:13] LABS: Anion Gap 10.9 (5-19); Blood Urea Nitrogen 7 mg/dL (8-23); Calcium 8.6 mg/dL (8.5-10.5); Carbon Dioxide 28 mmol/L (22-29); Chloride 107 mmol/L (98-107); Glucose 86 mg/dL (65-115); Magnesium 1.8 mg/dL (1.7-2.3); Osmolality Calculated 291 mOsm/kg (285-295); Potassium 3.9 mmol/L (3.5-5.1); Sodium 142 mmol/L (136-145)
[2025-09-17 04:20] LABS: Troponin T (5th) Once 273 ng/L (0-10)
--- NOTE | 2025-09-17 06:37 | XACV_ITS ---
Exam Room: 2 Ht: 175 cm Wt: 102 kg BSA: 2.26 m2 Gender: Female : 1955 Any Known Allergies: Penicillins Exam Priority: Routine Procedure(s): Procedure Description: Diagnostic procedure Procedure Description: Left Heart Catheterization Procedure Description: Left ventriculography Procedure Description: Coronary IVUS Procedure Description: Coronary Angiography Diagnostic Cath Status: Elective Diagnostic Findings * Left Main has no significant disease. * Circumflex has no significant disease. * Right Coronary Artery has mild luminal irregularities. * Proximal Left Anterior Descending: mild 30% stenosis, HEATHER: 3 flow. Sluggish flow. * Coronary angiography shows right dominance. Interventional Findings * Procedure detail: IVUS of proximal LAD performed that did not show significant stenosis or thrombus. Medical therapy decided. Conclusions 1. Mild LAD stenosis. IVUS performed secondary to sluggish flow in LAD. However no significant stenosis or thrombus seen.. 2. Normal left ventricular systolic function. Ejection fraction of 55%. Recommendations * Patient's presentation secondary to [place] vs vasospasm. Medical therapy with antiplatelet agent, statin and imdur. * Outpatient cardiology follow up. Interventional RX Recommendation: medical therapy and/or counseling Diagnostic RX Recommendation: medical therapy and/or counseling Anticoagulation: Heparin Ventriculography Ejection Fraction: 55.0 % Pressures Phase:Rest AO : 80 / 56 ( 68 ) @ 9:50:00 AM 84 / 60 ( 72 ) @ 9:51:00 AM 94 / 64 ( 80 ) @ 9:52:00 AM 100 / 66 ( 83 ) @ 9:56:00 AM 132 / 71 ( 99 ) @ 10:00:00 AM 132 / 71 ( 99 ) @ 10:00:00 AM 127 / 76 ( 92 ) @ 10:13:00 AM LV : 135 / -1 / 19 @ 9:59:00 AM 125 / 3 / 21 @ 10:00:00 AM 128 / 0 / 20 @ 10:00:00 AM Valves Phase:DefaultPhase AV : 0.0 @ 10:18:36 AM AV Mean Gradient: 0.0 @ 10:18:36 AM Clinical Evaluation EBL: 5mL-10mL Procedural Details Pre-Procedure Time Out. Identified patient by full name and date of as verbalized by the patient/guarantor. Does the consent match the physician's order: Yes. Accurate & Complete Informed Consent: Yes. Inpatient/Outpatient History & Physical on Chart: Yes. If H&P is completed, is and addenduem needed: No; If yes, is the addendum complete: N/A. Visualize and Verify Site with Patient/Guarantor: N/A. Relevant Radiology Images available: Yes. Pre-op teaching completed and patient verbalized understanding. The risks, benefits, and alternatives of sedation and/or procedure were discussed by physician. The patient agrees to continue. Procedure started. Physician arrived. Current Diagnosis : Chest Pain. [facility] Clinical Fraility Score: 4: Vulnerable. Burr Mill Operator Indications: ACS > 24 hours. Chest Pain Symptom Assessment: Typical Angina Symptoms. Correct patient, site and procedure confirmed by cath team. Current diagnosis: NSTEMI. PERRLA. Strong, equal hand telephone betting clerk bilaterally. Lungs clear x 5 lobes. IV Site on Arrival: 18 gauge in the left anticubital. IV Fluids: 0.9% NaCl at KVO. 0 mL infused prior to laborer vineyard. Oxygen started at 2liters/min via nasal canula. right groin was prepped with chloroprep then draped in the usual sterile fashion. right radial was prepped with chloroprep then draped in the usual sterile fashion. Baseline sample Acquired. HR: 71 BPM. Physician scrubbed in. Immediate Pre-Procedure Time Out. Correct Patient: Yes; Correct Procedure: Yes; Correct Site: Yes; Correct Patient Position: Yes; Correct Supplies: Yes; Dried Flammable Prep: Yes; Blood Products Available: N/A;. Lidocaine 1% infiltrated to the right radial. Arterial access obtained. A 5 tajik TIG catheter in over wire. Multiple views taken of left coronary artery. Catheter redirected to the RCA. Multiple views taken of right coronary artery. Catheter removed over the exchange wire. A 5 tajik Angled Pig catheter in over wire. EDP Sample taken: LV 135/-2,19; HR: 78 BPM; SpO2: 96%. LV gram performed in LEMONS @ 10 mL/second for a total of 30 mL. EDP Sample taken: LV 125/3,21; HR: 64 BPM; SpO2: 95%. Pullback taken: LV 128/0,20; AO 132/71(99); Mean: 0mmHg, Peak to Peak: 0mmHg, SEP: 6sec/min; HR: 68 BPM; SpO2: 96%. Catheter removed over the exchange wire. 6 tajik XB 3 guide catheter was inserted over the wire. Guide catheter out. A new 6 tajik XB 3 guide catheter was inserted over the wire. Runthrough guidewire was advanced through the guide catheter to lesion in the prox LAD. IVUS catheter inserted and advanced to the LAD. IVUS measurements obtained. IVUS catheter out OTW. Results checked. Wire out. Guide catheter out. A TR Band was successful obtaining hemostatsis at the Right Radial artery insertion site. Post Procedure: Pulses reassessed and unchanged. PERRLA. Strong, equal hand telephone betting clerk bilaterally. No VTE prophylaxis required. Medication's Wasted: Lidocaine 1% = 18 mL. Medication's Wasted: Nitro = 49.6 mcg. Medication's Wasted: Heparin = 3000 units. Medication's Wasted: Other = Fentanyl 50 mcg. Total IV fluids: 50 mL. Post-op diagnosis: Non-obstructive CAD. Complications: None. Estimated blood loss: 5mL-10mL. Responsiveness - Normal response to verbal stimuli; alert and oriented, PERRLA. Airway - Unaffected, no intervention required; spontaneous ventilation. Circulation: W/N/L, pulses unchanged. Nausea/Vomiting: No. Procedure completed. Patient transferred by bed to 1st floor. Vital chart was stopped. Access Site Site: Right Radial artery Sheath Size: 6 Fr Hemostasis Method: TR Band Hemostasis Success: Successful Procedure Medications Start: 9:35 AM Stop: 9:35 AM Medication: Versed Amount: 1 mg Route: I.V. Start: 9:35 AM Stop: 9:35 AM Medication: Fentanyl Amount: 50 mcg Route: I.V. Start: 9:44 AM Stop: 9:44 AM Medication: Versed Amount: 1 mg Route: I.V. Start: 9:45 AM Stop: 9:45 AM Medication: Nitrogylcerin Amount: 200 mcg Route: I.A. Start: 9:47 AM Stop: 9:47 AM Medication: Heparin Amount: 5000 units Route: I.V. Start: 10:01 AM Stop: 10:01 AM Medication: Nitrogylcerin Amount: 200 mcg Route: I.A. Start: 10:08 AM Stop: 10:08 AM Medication: Heparin Amount: 3000 units Route: I.V. I, the attending physician, have reviewed and verified all procedure medications. Yes, all medications given per verbal order History/Risk Factors Hypertension: No Dyslipidemia: Yes Peripheral Arterial Disease (PAD): No Myocardial Infarction (CT): No Obesity: Yes Renal Disease: No Tobacco Use: Former Prior Interventions PCI: No CABG: No Valve Surgery: No Report Signatures Finalized by George Ahn MD on 09/17/2025 10:42 AM
--- NOTE | 2025-09-17 09:24 | PC.NURSE ---
To microbiology lab manager via bed with microbiology lab manager RNx2.
--- NOTE | 2025-09-17 09:35 | W.PM.OPSUD ---
Surgery/Procedure H&P Update DATE OF PROCEDURE: September 17, 2025 DATE H&P PERFORMED: 09/16/25 H&P UPDATE INFORMATION: I have reviewed H&P completed within last 30 days, I have examined patient prior to procedure and No changes to prior documentation PREOP DIAGNOSIS: NSTEMI PRIMARY INDICATION FOR PROCEDURE: NSTEMI PLANNED PROCEDURE: Left heart cath with possible percutaneous coronary intervention PATIENT REASSESSED PRIOR TO SEDATION, WITH NO CHANGE NOTED: Yes PHYSICAL EXAM: alert, oriented x 3, clear to auscultation bilaterally and regular rate & rhythm AIRWAY EVAL/ANESTHESIA PLAN: normal airway, ASA III, Local Anesthesia, Risks, benefits & alternatives of sedation and/or procedure discussed and Patient agrees to continue as planned ADDITIONAL INFORMATION: Moderate sedation
--- NOTE | 2025-09-17 09:44 | P.PN_ITS ---
Subjective 2 Subjective: Patient seen this morning on medical floor in the cardiac stepdown unit. She is a 70-year-old female who was admitted yesterday because of some complaint of difficulty breathing with chest pain. She was suspected of having acute NSTEMI, and therefore admitted for further evaluation. Seeing her this morning, she reports remarkable improvement in symptoms. She complains of some mild headache, which she mainly attributes to poor sleep. She had no new complaints. Vitals/I&O/Wt Last Vital Signs Temp 97.0 F L 09/17/25 08:00 Pulse 64 09/17/25 08:00 Resp 17 09/17/25 08:00 BP 114/70 09/17/25 08:00 Pulse Ox 92 09/17/25 08:00 O2 Del Method Room Air 09/17/25 08:00 09/16/25 09/17/25 09/17/25 22:59 06:59 14:59 Intake Total 360 / 360 500 / 860 Balance 360 / 360 500 / 860 Weight last 48 hrs Weight 101.8 kg Weight 101.8 kg Weight 98.3 kg Weight 98.883 kg Physical Exam 2 Narrative: General: Awake and alert. Cooperative. Chest/Resp: Normal respiratory chest movts; no obvious respiratory distress. CVS: Rhythm: Regular heart rate and rhythm. GI: Non-distended; No obvious organomegaly. Extremities: No obvious pitting pedal edema. Skin: No obvious new rashes or new skin lesions. Data 09/17/25 03:08 09/17/25 03:08 A&P Assessment and plan 1. Non-ST elevation [place] (NSTEMI): 2. HLD (hyperlipidemia): Plan: Patient later had a heart cath this morning by the non ferrous material handler, which reports no obvious significant findings. Medical management recommended. Meanwhile, patient then complained of worsening headache mild. We will treat this empirically, and reassess with time. We may likely watch her for 1 more day, and reassess in the morning. Otherwise, continue every other ongoing treatment plans. Otherwise, await further advice from cardiology. PDMP PDMP Reviewed: Not Reviewed Attestations 2 Medical Necessity Statement*: Patient is considerately estimated to likely to require up to another 1 mid- night stay in the medical floor on inpatient status so as to hopefully optimally treat the acute medical problems and their symptoms and further control comorbidities. Coding Level of Care Code Acute Code for Chg Fwd Diagnoses Non-ST elevation [place] (NSTEMI) I21.4 HLD (hyperlipidemia) E78.5
--- NOTE | 2025-09-17 09:46 | P.PN_ITS ---
<Statement entered by Jitendra Villalta MD - 09/17/25 21:07> Patient was evaluated and cared for in conjunction with an advanced practice practitioner. I personally saw the patient and reviewed the chart and all pertinent data. I discussed the patient in detail with the advanced practice practitioner. Please see their note for complete assessment and agreed upon plan of care for the patient. Subjective 2 Subjective: No events overnight. No chest pain this morning. Plan for [facility] this morning, she has been NPO. No shortness of breath currently. She has aspirin allergy, is on Brilinta monotherapy. She should continue this for 1 year. Afternoon update: No significant stenosis on coronary angiogram. Will add amlodipine 2.5mg daily as blood pressure allows, currently 110 systolic for treatment of possible vasospasm. Vitals/I&O/Wt Last Vital Signs Temp 97.0 F L 09/17/25 08:00 Pulse 64 09/17/25 08:00 Resp 17 09/17/25 08:00 BP 114/70 09/17/25 08:00 Pulse Ox 92 09/17/25 08:00 O2 Del Method Room Air 09/17/25 08:00 09/16/25 09/17/25 09/17/25 22:59 06:59 14:59 Intake Total 360 / 860 500 / 860 Balance 360 / 860 500 / 860 Weight last 48 hrs Weight 224 lb 6.889 oz Weight 224 lb 6.889 oz Weight 216 lb 11.43 oz Weight 218 lb Physical Exam 2 Const: COMMON NORMALS: no acute distress and patient oriented x3 GENERAL APPEARANCE: cooperative and comfortable ORIENTATION/CONSCIOUSNESS: Yes awake, Yes oriented to person, Yes oriented to place and Yes oriented to time Chest: COMMONS NORMALS: normal inspection of the chest and normal palpation of entire chest wall CHEST: Yes Symmetrical chest wall rise Resp: COMMON NORMALS: normal respiratory effort, No retractions, No use of accessory muscles and clear to auscultation bilaterally EFFORT & INSPECTION: Yes symmetric chest movement AUSCULTATION: clear to auscultation bilaterally Cardio: COMMON NORMALS: regular rate, regular rhythm, S1 normal heart sound present, S2 normal heart sound present, No gallops present (Cardio), No clicks present (Cardio), No murmurs present (Cardio) and No rub (Cardio) RATE: r egular rate RHYTHM: regular rhythm HEART SOUNDS: S1 normal heart sound present and S2 normal heart sound present PERIPHERAL PULSES: radial pulses present Extremity: COMMON NORMALS: no pedal edema Neuro: COMMON NORMALS: patient oriented x3 and moves all extremities S ENSORIUM/ORIENTATION: Yes oriented to person, Yes oriented to place and Yes oriented to time Data 09/17/25 03:08 09/17/25 03:08 A&P Assessment and plan 1. Non-ST elevation [place] (NSTEMI): 2. HLD (hyperlipidemia): 3. Chest pain: 4. Nicotine dependence: 5. Aspirin allergy: Plan: No active chest pain, will have C today, further plan to be determined. PDMP PDMP Reviewed: Not Reviewed Attestations 2 Medical Necessity Statement*: ischemic workup for NSTEMI Coding Level of Care Code Acute Code for [facility] Fwd Diagnoses Non-ST elevation [place] (NSTEMI) I21.4 HLD (hyperlipidemia) E78.5 Chest pain R07.9 Nicotine dependence F17.200 Aspirin allergy Z88.8
--- NOTE | 2025-09-17 10:25 | PM.PROC ---
Procedure Note: Date of procedure: 09/17/25 Pre-procedure diagnosis: NSTEMI Post-procedure diagnosis: other (Patent coronary arteries) Procedure: Patent coronary arteries with mild and disease in proximal to mid LAD. Given sluggish flow, we proceeded with IVUS. It did not show flow-limiting stenosis or thrombus. Troponin elevation can be secondary to MINOCA vs vasospasm. Aggressive medical therapy LV gram shows normal LV function. Obtain echocardiogram Performing Provider: George Ahn Estimated blood loss (mL): 5 Complications: None Condition: stable Disposition: floor Coding Level of Care Code Acute Code for g Fwd
--- NOTE | 2025-09-17 10:45 | PC.NURSE ---
1030 -- Returned from [facility] via bed with RN at bedside. TR band to right wrist with 15mL air in place. Small hematoma noted above TR band. Pressure applied. ANA Tena from [facility] animal facility placed 2nd TR band above first with 10mL air inserted. V/S stable, no reports of chest pain or shortness of breath. Reports 10/10 headache in temples. Will notify
--- NOTE | 2025-09-17 17:41 | PC.NURSE ---
Patient refusing to wear blood pressure and continues to pull cuff off stating that it hurts. Tried different size cuffs and different places on left arm. States it really hurts. Educated patient that we had to take the vital signs including the blood pressure frequently while the TR band is on and for a few hours after if is off and then we wont have to take it as frequently. She states I just can's stand it, it hurts my arm. Asked patient what I could to to make it better and educated that I could not make her wear it and if she did not want to wear it I could document that she did not want to wear it. Patient becomes upset and states there is nothing you can do .
--- NOTE | 2025-09-17 18:06 | PC.NURSE ---
1215 -- 2 mL air removed from upper TR band. 1245 -- 2 mL air removed from upper TR band. 1330 -- 2 mL air removed from upper TR band. 1345 -- 2 mL air removed from upper TR band. 1445 -- 2 mL air removed from upper TR band. 1500 -- Upper TR band removed, No bleeding or swelling noted. 1515 -- 2 mL air removed from original TR band. 1535 -- 2 mL air removed from original TR band. 1600 -- 2 mL air removed from original TR band. 1615 -- 2 mL air removed from original TR band. 1645 -- 2 mL air removed from original TR band. 1710 -- 3 mL air removed from original TR band. 1730 -- 2 mL air removed from original TR band. 1745 -- No bleeding or hematoma noted. TR band removed, band-aid applied. 1800 -- Right radial cath lab radiological technologist site remains dry/intact. Pulses strong and palpable.
[2025-09-18] VITALS (11 sets, daily range): BP systolic 97–127; BP diastolic 53–77; PULSE 51–71; RESP 10–20; TEMP 36.1–37; O2SAT 90–97
[2025-09-18 06:30] LABS: Anion Gap 10.8 (5-19); Blood Urea Nitrogen 6 mg/dL (8-23); Calcium 8.9 mg/dL (8.5-10.5); Carbon Dioxide 27 mmol/L (22-29); Chloride 108 mmol/L (98-107); Glucose 91 mg/dL (65-115); Osmolality Calculated 291 mOsm/kg (285-295); Potassium 3.8 mmol/L (3.5-5.1); Sodium 142 mmol/L (136-145)
--- NOTE | 2025-09-18 08:13 | P.DS_ITS ---
Discharge Providers Date of Admission: 09/16/25 11:22 Date of Discharge: September 18, 2025 Attending Provider at Admission: Devyn Mcintyre MD Attending Provider at Discharge: Devyn Mcnityre MD Consults: Cardiology consulted. Primary Care Provider: JILL Gonzalez Diagnoses at Discharge Discharge Diagnosis 1. Non-ST elevation [place] (NSTEMI): Details from hospital stay: Suspected that the ruled out, given negative findings on angiogram. 2. HLD (hyperlipidemia): 3. Nicotine dependence: 4. Aspirin allergy: Reason for Visit Reason for Visit: chest pain; sob Brief History: Patient presented hospital with chest pain and difficulty breathing. Troponins were elevated, therefore we cannot suspect acute NSTEMI. Hospital Course Hospital Course Patient was admitted to the telemetry floor, and monitored closely. Cardiac enzymes were trended per ACS protocol, with 2 EKGs repeated as needed. The chest pain symptoms were treated empirically; nitroglycerin, morphine, etc. Cardiology was consulted, who made appropriate expert recommendations, which includes cardiac stress test, angiography, etc. angiogram revealed negative findings, therefore making manager science think that the elevated troponin is due to MINOCA versus vasospasm. Given the negative findings, ACS/NSTEMI was therefore ruled out. Patient was therefore recommended by cardiology for discharge with aggressive medical therapy.. Physical Exam Narrative: General: Awake and alert patient. Resp: No obvious respiratory distress or difficulty breathing. Skin: No obvious rashes or new skin lesions. All other physical findings essentially within normal limits. Discharge Data Studies Completed and Pending Completed Studies During Hospitalization Category Date Time Status CT angio chest PE protcl [id number] Routine Cat Scan 09/16/25 12:59 Completed HYDROMETEOROLOGIST request for service Routine Exams 09/17/25 06:37 Completed XR chest 1V portable [id number] Stat Exams 09/16/25 10:01 Completed CV. echo complete* [id number] Stat Ultrasound 09/16/25 11:19 Completed Radiology Impressions Chest X-Ray 09/16/25 10:01 IMPRESSION: No acute cardiopulmonary abnormality. Chest CTA 09/16/25 12:59 IMPRESSION: Findings consistent with chronic reactive airway disease Vitals Last Vital Signs Temp 98.6 F 09/18/25 04:00 Pulse 56 L 09/18/25 05:00 Resp 16 09/18/25 05:00 BP 121/56 09/18/25 07:30 Pulse Ox 93 09/18/25 07:30 O2 Del Method Room Air 09/18/25 04:00 O2 Flow Rate 2 09/17/25 16:15 Discharge Plan Discharge Patient Disposition: Home Condition: Stable Prescriptions: New atorvastatin 40 mg Tablet 80 mg PO BEDTIME Qty: 30 2RF amlodipine 5 mg Tablet 2.5 mg PO DAILY Qty: 30 2RF Continued propranolol 10 mg tablet 10 mg PO BID PRN (Reason: anxiety) Qty: 60 1RF B-complex with vitamin C Tablet 1 tab PO .QOD Algal Flournoy-3 DHA 200 mg capsule 200 mg PO DAILY levothyroxine 100 mcg tablet 100 mcg PO QAM Qty: 90 3RF leflunomide 20 mg tablet 20 mg PO DAILY Qty: 90 1RF Xeljanz XR 11 mg tablet extended release 24 hr 11 mg PO QAM Qty: 30 1RF Rx Instructions: 340 B cyanocobalamin (vitamin B-12) [Vitamin B-12] 250 mcg Tablet 250 mcg PO DAILY cholecalciferol (vitamin D3) [Vitamin D3] 125 mcg (5,000 unit) Tablet 125 mcg PO DAILY diclofenac sodium 1 % gel 2 g topical QID PRN (Reason: Pain) Rx Instructions: apply to single elbow, wrist or hand; for hand includes palm/fingers/back of hand prednisone 5 mg tablet 5 mg PO DAILY folic acid 1 mg tablet 1 mg PO QAM albuterol sulfate 90 mcg/actuation HFA aerosol inhaler 1 - 2 puff inhalation QID PRN (Reason: Shortness Of Breath Or Wheezing) No Action ticagrelor [Brilinta] 90 mg tablet 90 mg PO BID Qty: 60 2RF Pharmacy Customer Care Specialist [place] for DC: Cardiology Discharge Order = DC NOW: Discharge Order (Routine); Ordered 09/18/25 Ordered By: Devyn Mcintyre Referrals: Kymberly Funk FNP [Primary Care Provider, Nurse Practitioner] - 09/21/25 11:00 am Brook Gregory FNP [Nurse Practitioner, Cardiology] - 10/09/25 3:00 pm Discharge Diet: Usual diet and Cardiac Discharge Activity: Resume usual activity and Increase activity as tolerated Patient Instructions: Amlodipine (By mouth), Atorvastatin (By mouth) (Lipitor, Atorvaliq), Ticagrelor (By mouth) (Brilinta), Cardiac Rehabilitation (DC), Chest Pain Stoplight, Opioid Safety, Patient Portal & [place] Instructions Discharge Attestations Time Spent in Discharge Care*: less than 30 min Quality Metrics Clinical Quality Measures [ No reported AMI, CVA or VTE this stay] Coding Level of Care Code 10147 Diagnoses Non-ST elevation [place] (NSTEMI) I21.4 HLD (hyperlipidemia) E78.5 Nicotine dependence F17.200 Aspirin allergy Z88.8
--- NOTE | 2025-09-18 09:20 | P.PN_ITS ---
<Statement entered by George Ahn M.D - 09/23/25 13:27> Patient was cared for in conjunction with an advanced practice practitioner.? I reviewed the chart and all pertinent data including imaging, telemetry, and laboratory results.? I discussed the patient in detail with the advanced practice practitioner.? Please see? their documentation for progress note, testing results and agreed upon plan of care for the patient. Subjective 2 Subjective: She has some shortness of breath at rest. She has not had any chest pain since procedure. Continue amlodipine 2.5 mg daily. Vitals/I&O/Wt Last Vital Signs Temp 97.0 F L 09/18/25 08:00 Pulse 71 09/18/25 08:00 Resp 16 09/18/25 08:00 BP 104/61 09/18/25 08:00 Pulse Ox 93 09/18/25 08:00 O2 Del Method Room Air 09/18/25 08:00 O2 Flow Rate 2 09/17/25 16:15 09/17/25 09/18/25 09/18/25 22:59 06:59 14:59 Intake Total 200 / 2870 2320 / 2870 360 / 360 Output Total 200 / 1050 250 / 1050 500 / 500 Balance 0 / 1820 2070 / 1820 -140 / -140 Weight last 48 hrs Weight 227 lb 11.8 oz Weight 224 lb 6.889 oz Weight 224 lb 6.889 oz Weight 216 lb 11.43 oz Weight 218 lb Physical Exam 2 Const: COMMON NORMALS: no acute distress and patient oriented x3 GENERAL APPEARANCE: cooperative ORIENTATION/CONSCIOUSNESS: Yes awake, Yes oriented to person, Yes oriented to place and Yes oriented to time Chest: COMMONS NORMALS: normal inspection of the chest and normal palpation of entire chest wall CHEST: Yes Symmetrical chest wall rise Resp: COMMON NORMALS: normal respiratory effort, No retractions, No use of accessory muscles and clear to auscultation bilaterally AUSCULTATION: clear to auscultation bilaterally Cardio: COMMON NORMALS: regular rate, regular rhythm, S1 normal heart sound present, S2 normal heart sound present, No gallops present (Cardio), No clicks present (Cardio), No murmurs present (Cardio) and No rub (Cardio) RATE: r egular rate RHYTHM: regular rhythm HEART SOUNDS: S1 normal heart sound present and S2 normal heart sound present PERIPHERAL PULSES: radial pulses present positive right 2+ and femoral pulses present positive right 2+ Neuro: COMMON NORMALS: patient oriented x3 and moves all extremities S ENSORIUM/ORIENTATION: Yes oriented to person, Yes oriented to place and Yes oriented to time Skin: WOUNDS: Yes surgical site (no hematoma palpable) Details: no odor Data 09/17/25 03:08 09/18/25 05:45 A&P Assessment and plan 1. Non-ST elevation [place] (NSTEMI): 2. Nicotine dependence: 3. HLD (hyperlipidemia): 4. Aspirin allergy: 5. Dyspnea: Plan: Plan is for discharge home today. Continue amlodipine 2.5mg daily, Brilinta 90mg BID, statin. Follow up with cardiology in 2 weeks. PDMP PDMP Reviewed: Not Reviewed Attestations 2 Medical Necessity Statement*: dc planned Coding Level of Care Code Acute Code for Chg Fwd Diagnoses Non-ST elevation [place] (NSTEMI) I21.4 Nicotine dependence F17.200 HLD (hyperlipidemia) E78.5 Aspirin allergy Z88.8 Dyspnea R06.00
--- NOTE | 2025-09-18 11:21 | PC.NURSE ---
Addendum entered by Sadie Grissom RN 09/18/25 11:25: New medications transmitted to [facility] in [place] Original Note: patient discharged to home. Instruction provided regarding follow up appointments, new medications site care with restrictions. Patient and daughter verbalized complete understanding. No bleeding or hematoma formation observed to right wrist. Patient taken by wheelchair to private vehicle with daugher by side.
== END 2025-09-18 11:28 | disposition home or self-care (01) | DRG 282 ==
LOC: ER 11:37 → CSU 11:47
PROVIDERS: Clinical Nurse Specialist Acute Care; Internal Medicine; Internal Medicine Cardiovascular Disease; Nurse Practitioner Family; Admitting Provider Family Medicine; Emergency Provider Emergency Medicine; PCP Nurse Practitioner; Visit Provider Family Medicine
PROC: B2111ZZ Fluoroscopy of Multiple Coronary Arteries using Low Osmolar Contrast (ICD-10-PCS; principal; 2025-09-17 08:30)
DX: I21.4 Non-ST elevation (NSTEMI) myocardial infarction (principal); I25.10 Atherosclerotic heart disease of native coronary artery without angina pectoris; F17.210 Nicotine dependence, cigarettes, uncomplicated; E78.5 Hyperlipidemia, unspecified; F41.9 Anxiety disorder, unspecified; E03.9 Hypothyroidism, unspecified; M05.9 Rheumatoid arthritis with rheumatoid factor, unspecified; G62.9 Polyneuropathy, unspecified; Z87.01 Personal history of pneumonia (recurrent); Z88.8 Allergy status to other drugs, medicaments and biological substances
CPT/HCPCS: 36415; 71045; 71275; 80048; 80053; 83036; 83690; 83735; 84484; 85025; 85378; 85610; 92978; 93005; 93306; 93458; 96372; 96374; 96375; 99152; 99153; 99285; C1753; C1769; C1887; C1894; J1644; J1650; J2250; J2270; J2405; J3010; J3490; J7030; J7040; J7512; J9999; Q9967

== ENCOUNTER 2025-09-25 16:02 | Emergency (ER) | payer MEDICARE, OTHER, SELFPAY ==
[2025-09-25 16:02] VITALS: BP 167/85; PULSE 70; RESP 16; TEMP 36.6; O2SAT 97
--- NOTE | 2025-09-25 16:02 | XRR_ITS ---
PROCEDURE INFORMATION: Exam: XR Chest Exam date and time: 09/25/2025 4:13 PM Age: 70 years old Clinical indication: Other: HTN TECHNIQUE: Imaging protocol: Radiologic exam of the chest. Views: 1 view. COMPARISON: CT angio chest PE protcl [id number] 09/16/2025 4:20 PM FINDINGS: Lungs: Left basilar atelectasis and/or scarring. Pleural spaces: Unremarkable. No pleural effusion. No pneumothorax. Heart/Mediastinum: Unremarkable. No cardiomegaly. Bones/joints: Unremarkable. XR/XR chest 1V portable [id number] IMPRESSION: No acute cardiopulmonary findings.
--- NOTE | 2025-09-25 16:13 | ECG_ITS ---
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 Measurements Intervals [place] Rate: 69 P: 20 UT: 136 QRS: 56 QRSD: 77 T: 42 QT: 392 QTc: 422 Interpretive Statements SINUS RHYTHM WITH OCCASIONAL VENTRICULAR PREMATURE COMPLEXES Compared to ECG 09/16/2025 15:35:33 Ventricular premature complex(es) now present Sinus bradycardia no longer present ST (T wave) deviation no longer present Electronically Signed On 09-27-2025 17:49:10 EMERGENCY MANAGEMENT DIRECTOR by Carmen Phan M.D. [email or web address]
--- NOTE | 2025-09-25 16:15 | W.ED.GENADLT ---
HPI - General Adult General: Chief complaint: General Medical Stated complaint: High BP Time Seen by Provider: 09/25/25 16:02 Source: patient and EMS Mode of arrival: EMS Limitations: no limitations History of Present Illness: 70-year-old female has a history of hypertension states that today her blood pressure has been running in the 180s has been having a slight headache. States that she gets headaches when her blood pressure does elevate. She was admitted here 2 weeks ago for an NSTEMI had a cardiac cath that was negative she denies any chest pain she denies any shortness of breath. Associated symptoms: Reports headache(s) Related Data Home Medications ?Medication ?Instructions ?Recorded ?Confirmed cholecalciferol (vitamin D3) 125 125 mcg PO DAILY 01/06/23 09/16/25 mcg (5,000 unit) tablet (Vitamin D3) cyanocobalamin (vitamin B-12) 250 250 mcg PO DAILY 01/06/23 09/16/25 mcg tablet (Vitamin B-12) diclofenac sodium 1 % topical gel 2 g topical QID PRN Pain 01/06/23 09/16/25 B-complex with vitamin C 1 tab PO .QOD 12/20/23 09/16/25 docosahexaenoic acid 200 mg 200 mg PO DAILY 12/20/23 09/16/25 capsule (Algal [place]-3 DHA) albuterol sulfate 90 mcg/actuation 1 - 2 puff inhalation QID PRN 09/16/25 09/16/25 aerosol inhaler Shortness Of Breath Or Wheezing folic acid 1 mg tablet 1 mg PO QAM 09/16/25 09/16/25 prednisone 5 mg tablet 5 mg PO DAILY 09/16/25 09/16/25 Previous Rx's ?Medication ?Instructions ?Recorded levothyroxine 100 mcg tablet 100 mcg PO QAM #90 tabs 04/19/25 leflunomide 20 mg tablet 20 mg PO DAILY #90 tabs 08/31/25 tofacitinib 11 mg tablet,extended 11 mg PO QAM #30 tabs 08/31/25 release 24 hr (Xeljanz XR) propranolol 10 mg tablet 10 mg PO BID PRN anxiety #60 tabs 09/03/25 amlodipine 5 mg tablet 2.5 mg (1/2 x 5 mg) PO DAILY #30 09/18/25 tabs atorvastatin 40 mg tablet 80 mg (2 x 40 mg) PO BEDTIME #30 09/18/25 tabs ticagrelor 90 mg tablet (Brilinta) 90 mg PO BID #60 tabs 09/18/25 Allergies Allergy/AdvReac Type Severity Reaction Status Date / Time aspirin Allergy rash Verified 09/03/25 10:40 Penicillins Allergy rash Verified 09/03/25 10:40 Review of Systems Neuro: Reports: headache(s) PFS ED PFSH: Medical History (Updated 09/25/25 @ 17:09 by Mario Magaña MD) Hypothyroidism Numbness and tingling of upper extremity Non-ST elevation MD (NSTEMI) ESR raised Rheumatoid factor positive Arthralgia Surgical History Hx of cholecystectomy Social History Smoking and tobacco/nicotine status: former use of tobacco/nicotine Alcohol intake: current Alcohol intake frequency: few times a month Physical Exam Const: COMMON NORMALS: no acute distress, patient oriented x3 and healthy appearing HENMT: COMMON NORMALS: normocephalic and atraumatic HEAD & SCALP: normocephalic and atraumatic Neck/C-Spine: COMMON NORMALS: full ROM and supple Chest: COMMONS NORMALS: normal inspection of the chest Resp: COMMON NORMALS: normal respiratory effort, No retractions, No use of accessory muscles and clear to auscultation bilaterally AUSCULTATION: clear to auscultation bilaterally Cardio: COMMON NORMALS: regular rate, regular rhythm and No murmurs present (Cardio) RATE: regular rate RHYTHM: regular rhythm Extremity: COMMON NORMALS: normal to inspection and full ROM Neuro: COMMON NORMALS: patient oriented x3, moves all extremities and no focal motor deficits Psych: COMMON NORMALS: mental status grossly normal, Normal thought process present and cooperative THOUGHT PROCESS: Normal thought process present Skin: COMMON NORMALS: no rashes or lesions noted and no wounds GENERAL SKIN EXAM: no rashes or lesions noted Course Vital Signs: Vital signs: Vital Signs Temperature 97.8 F 09/25/25 16:02 Pulse Rate 63 09/25/25 17:18 Respiratory Rate 16 09/25/25 16:02 Blood Pressure 137/81 09/25/25 17:18 Pulse Oximetry 93 09/25/25 17:18 Oxygen Delivery Me thod Room Air 09/25/25 16:17 MDM - General Adult Medical Decision Making Patient presents with hypertension along with a headache. Patient's been well-appearing here she has no signs of meningitis no signs of subarachnoid hemorrhage. Blood pressure here has been normal EKG I interpreted showed normal sinus rhythm heart rate [address] elevation QRS 77 QTc 412. Labs showed no significant abnormalities patient stable for discharge follow-up PCP return if worsening. Medical Records I reviewed the patient's medical records. Lab Data I reviewed the patient's lab results. 09/25/25 16:30 09/25/25 16:30 Radiology Impressions Chest X-Ray 09/25/25 16:02 IMPRESSION: No acute cardiopulmonary findings. Laboratory Results WBC 5.24 10^3/uL (3.29-11.43) 09/25/25 16:30 RBC 5.00 10^6/uL (3.85-5.65) 09/25/25 16:30 Hgb 15.20 g/dL (11.27-16.99) 09/25/25 16:30 Hct 46.1 % (36-47) 09/25/25 16:30 MCV 92.2 fl (85-98) 09/25/25 16:30 MCH 30.4 pg (27-33) 09/25/25 16:30 MCHC 33.0 g/dL (30-55) 09/25/25 16:30 RDW 13.7 % (12.1-15.1) 09/25/25 16:30 Plt Count 233 10^3/cmm (157-399) 09/25/25 16:30 MPV 10.0 fL (7.4-10.4) 09/25/25 16:30 Neut % (Auto) 67.3 % 09/25/25 16:30 Lymph % (Auto) 20.4 % 09/25/25 16:30 [place] % (Auto) 9.0 % 09/25/25 16:30 Eos % (Auto) 2.1 % 09/25/25 16:30 Baso % (Auto) 1.0 % 09/25/25 16:30 Neut # (Auto) 3.53 10^3/uL (1.8-7.7) 09/25/25 16:30 Lymph # (Auto) 1.1 10^3/uL (0.8-4.8) 09/25/25 16:30 [place] # (Auto) 0.5 10^3/uL (0.2-0.9) 09/25/25 16:30 Eos # (Auto) 0.1 10^3/uL (0.0-0.8) 09/25/25 16: Baso # (Auto) 0.1 10^3/uL (0.0-0.1) 09/25/25 16:30 Nucleated RBC % (auto) 0 % 09/25/25 16: Nucleated RBCs # 0.0 /100WBC 09/25/25 16:30 Sodium 142 mmol/L (136-145) 09/25/25 16: Potassium 4.4 mmol/L (3.5-5.1) 09/25/25 16: Chloride 106 mmol/L (98-107) 09/25/25 16: Carbon Dioxide 26 mmol/L (22-29) 09/25/25 16:30 Anion Gap 14.4 (5-19) 09/25/25 16:30 BUN 14 mg/dL (8-23) 09/25/25 16:30 Creatinine 0.8 mg/dL (0.5-0.9) 09/25/25 16:30 GFR Calculation Not Reportable 09/25/25 16: Glucose 115 mg/dL (65-115) 09/25/25 16:30 Calculated Osmolality 295 mOsm/kg (285-295) 09/25/25 16: Calcium 9.4 mg/dL (8.5-10.5) 09/25/25 16:30 Total Bilirubin 0.6 mg/dL (0.15-1.2) 09/25/25 16:30 AST 21 U/L (0-32) 09/25/25 16:30 ALT 27 U/L (0-33) 09/25/25 16:30 Alkaline Phosphatase 84 U/L (35-105) 09/25/25 16:30 Total Protein 6.9 g/dL (6.6-8.7) 09/25/25 16: Albumin 4.0 g/dL (3.5-5.2) 09/25/25 16:30 Globulin 2.9 g/dL (1.3-4.6) 09/25/25 16:30 All radiology interpretation(s) finalized by discharge EKG Data EKG 1: I personally reviewed and interpreted this EKG as follows: EKG interpretation date: 09/25/25 EKG interpretation time: 16:13 Interpretation: nsr hr [address] elevation qrs 77 qtc 412 Computer generated interpretation: Chest X-Ray 09/25/25 16:02 IMPRESSION: No acute cardiopulmonary findings. Discharge Plan Discharge Patient Disposition: Home Clinical Impression: Hypertension, Headache Condition: Stable Prescriptions: No Action propranolol 10 mg tablet 10 mg PO BID PRN (Reason: anxiety) Qty: 60 1RF B-complex with vitamin C Tablet 1 tab PO .QOD Algal [place]-3 DHA 200 mg capsule 200 mg PO DAILY levothyroxine 100 mcg tablet 100 mcg PO QAM Qty: 90 3RF leflunomide 20 mg tablet 20 mg PO DAILY Qty: 90 1RF Xeljanz XR 11 mg tablet extended release 24 hr 11 mg PO QAM Qty: 30 1RF Rx Instructions: 340 B ticagrelor [Brilinta] 90 mg tablet 90 mg PO BID Qty: 60 2RF cyanocobalamin (vitamin B-12) [Vitamin B-12] 250 mcg Tablet 250 mcg PO DAILY cholecalciferol (vitamin D3) [Vitamin D3] 125 mcg (5,000 unit) Tablet 125 mcg PO DAILY diclofenac sodium 1 % gel 2 g topical QID PRN (Reason: Pain) Rx Instructions: apply to single elbow, wrist or hand; for hand includes palm/fingers/back of hand prednisone 5 mg tablet 5 mg PO DAILY folic acid 1 mg tablet 1 mg PO QAM albuterol sulfate 90 mcg/actuation HFA aerosol inhaler 1 - 2 puff inhalation QID PRN (Reason: Shortness Of Breath Or Wheezing) atorvastatin 40 mg Tablet 80 mg PO BEDTIME Qty: 30 2RF amlodipine 5 mg Tablet 2.5 mg PO DAILY Qty: 30 2RF Discharge Orders: Discharge ED (Routine); Ordered 09/25/25 Ordered By: Mario Magaña Referrals: Kymberly Funk, [employer] [Primary Care Provider, Nurse Practitioner] - 4-7 days Discharge Diet: Advance as tolerated Discharge Activity: Resume usual activity Patient Instructions: Hypertension (ED) Print Language: [place]an Coding Level of Care Code ED Equipment Or Machinery Cleaner for Nika Hamilton
--- OUTSIDE RECORDS SUMMARY | 2025-09-25 16:15 | XMS_ITS | Encounter Summary ---
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
--- OUTSIDE RECORDS SUMMARY | 2025-09-25 16:15 | XMS_ITS | Encounter Summary ---
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
--- OUTSIDE RECORDS SUMMARY | 2025-09-25 16:15 | XMS_ITS | Clinical Summary ---
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
--- OUTSIDE RECORDS SUMMARY | 2025-09-25 16:15 | XMS_ITS | Clinical Summary ---
Author Organization 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
--- OUTSIDE RECORDS SUMMARY | 2025-09-25 16:15 | XMS_ITS | Encounter Summary ---
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
[2025-09-25 16:17] VITALS: BP 144/90; PULSE 67; O2SAT 97
[2025-09-25 16:38] LABS: Hematocrit 46.1 % (36-47); Hemoglobin 15.20 g/dL (11.27-16.99); Mean Corpuscular HGB Conc 33.0 g/dL (30-55); Mean Corpuscular Hemoglobin 30.4 pg (27-33); Mean Corpuscular Volume 92.2 fl (85-98); Nucleated Red Blood Cells % 0 %; Platelet Count 233 10^3/cmm (157-399); Red Blood Count 5.00 10^6/uL (3.85-5.65); White Blood Count 5.24 10^3/uL (3.29-11.43)
[2025-09-25 16:52] VITALS: BP 140/80; PULSE 62; O2SAT 97
[2025-09-25 17:03] LABS: Alanine Aminotransferase 27 U/L (0-33); Albumin Level 4.0 g/dL (3.5-5.2); Alkaline Phosphatase 84 U/L (35-105); Anion Gap 14.4 (5-19); Aspartate Amino Transferase 21 U/L (0-32); Blood Urea Nitrogen 14 mg/dL (8-23); Calcium 9.4 mg/dL (8.5-10.5); Carbon Dioxide 26 mmol/L (22-29); Chloride 106 mmol/L (98-107); Globulin 2.9 g/dL (1.3-4.6); Glucose 115 mg/dL (65-115); Osmolality Calculated 295 mOsm/kg (285-295); Potassium 4.4 mmol/L (3.5-5.1); Sodium 142 mmol/L (136-145); Total Protein 6.9 g/dL (6.6-8.7)
[2025-09-25] MEDS: HYDROcodone-acetaminophen 5-325 mg Tablet 1 TAB PO (17:12)
[2025-09-25 17:18] VITALS: BP 137/81; PULSE 63; O2SAT 93
== END 2025-09-25 17:19 | disposition home or self-care (01) ==
PROVIDERS: Emergency Provider Emergency Medicine; PCP Nurse Practitioner
DX: I10 Essential (primary) hypertension (principal); R51.9 Headache, unspecified; Z87.891 Personal history of nicotine dependence
CPT/HCPCS: 36415; 71045; 80053; 85025; 93005; 99285; J9999

== ENCOUNTER → 2025-09-26 12:56 | Outpatient (BNVA) | payer MEDICARE, OTHER, SELFPAY | PROVIDERS: PCP Nurse Practitioner; Visit Provider Internal Medicine Rheumatology | DX: M05.9 Rheumatoid arthritis with rheumatoid factor, unspecified (principal); Z79.899 Other long term (current) drug therapy; M79.673 Pain in unspecified foot | CPT/HCPCS: 99214 ==

== ENCOUNTER → 2025-10-09 14:52 | Outpatient (BNVA) | payer MEDICARE, OTHER, SELFPAY | PROVIDERS: PCP Nurse Practitioner; Visit Provider Nurse Practitioner Family | DX: I25.10 Atherosclerotic heart disease of native coronary artery without angina pectoris (principal); I25.2 Old myocardial infarction; Z51.89 Encounter for other specified aftercare; F41.9 Anxiety disorder, unspecified; I10 Essential (primary) hypertension | CPT/HCPCS: 99214 ==